=== PATIENT | male | born 1950 | race Hispanic/Latino ===

== ENCOUNTER 2017-02-19 17:04 | Inpatient (IN) | payer MEDICARE ==
[2017-02-19 18:54] LABS: Hematocrit 37.1 % (35.5-45.6); Mean Corpuscular HGB Conc 32 % (32-34); Mean Corpuscular Hemoglobin 29 pg (28-32); Mean Corpuscular Volume 90 fl (84-94); Platelet Count 277 K/mm3 (140-440); Red Blood Count 4.11 M/mm3 (3.65-5.03); Red Cell Distribution Width 18.5 % (13.2-15.2)
[2017-02-19 19:04] LABS: Albumin 2.5 g/dL (3.9-5); Albumin/Globulin Ratio 0.7 %; BUN/Creatinine Ratio 31.42; Bilirubin,Total 1.1 mg/dL (0.1-1.2); Calcium 8.6 mg/dL (8.4-10.2); Chloride 90.3 mmol/L (98-107); Potassium 3.7 mmol/L (3.6-5.0)
[2017-02-19] MEDS ORDERED: NORCO 5/325 PO ONE (19:04)
[2017-02-19 19:45] LABS: Basophils % (Manual) 0 % (0.0-1.8); Blastocytes % (Manual) 0 %; Eosinophils % (Manual) 0 % (0.0-4.3)
[2017-02-19 19:47] LABS: Anisocytosis 1+; Diff Status Complete; Large Platelets 1+; Platelet Estimate Consistent w Auto; Poikilocytosis 1+
[2017-02-19] MEDS ORDERED: VANCOMYCIN/NS 1 GM/250 ML 1 GM/250 ML BAG IV ONE (19:55)
[2017-02-19] MEDS ORDERED: ZOSYN/NS 4.5GM/100ML 4.5 GM/100 ML VIAL IV ONE (19:55)
--- NOTE | 2017-02-19 21:03 | Emergency Department Report ---
ED General Adult HPI - General Chief complaint: Wound/Laceration Stated complaint: BACK PAIN Time Seen by Provider: 02/19/17 19:29 Source: patient, EMS Mode of arrival: Stretcher Limitations: Physical Limitation - History of Present Illness Initial comments: 66 y/o M presents w/ cc of weakness. Pt 1 week ago ntoed to be gradually weak, pt is a poor historian. Pt fell on his way to the car 3-4 days ago, and had to be carried home by neighbors. Pt does complain of subjective fever, chills, and productive cough. Pt does have chronic back pain, and stated since the fall 3 days ago, had been too weak to walk. Pt denies vomiting, diarrhea. Severity scale (0 -10): 10 - Related Data Previous Rx's Medication Instructions Recorded Last Taken Type Multivitamin [Multi-Vitamin Daily] 1 each PO DAILY #30 tablet 06/04/14 Unknown Rx Omeprazole Magnesium [PriLOSEC Otc] 20 mg PO QDAY #30 tablet.dr 06/04/14 Unknown Rx ALBUTEROL Inhaler [ProAir HFA 2 puff IH QID PRN #1 inhalation 12/29/15 Unknown Rx Inhaler] Metoprolol [Lopressor TAB] 100 mg PO BID #30 tablet 12/29/15 Unknown Rx Pantoprazole [Protonix INJ] 40 mg PO BID #60 tab 12/29/15 Unknown Rx Trazodone HCl [Oleptro ER] 150 mg PO QHS #30 tab.er.24h 12/29/15 Unknown Rx Folic Acid [Folvite] 1 mg PO QDAY #30 tablet 07/08/16 Unknown Rx Lisinopril [Zestril TAB] 40 mg PO QDAY #30 tablet 07/08/16 Unknown Rx Thiamine [Vitamin B-1] 100 mg PO QDAY #30 tablet 07/08/16 Unknown Rx hydrALAZINE [Apresoline TAB] 50 mg PO Q8HR #90 tablet 07/08/16 Unknown Rx Allergies Allergy/AdvReac Type Severity Reaction Status Date / Time Tetanus Vaccines & Toxoid Allergy Unknown Verified 05/14/14 15:43 ED Review of Systems ROS: Stated complaint: BACK PAIN Other details as noted in HPI Comment: All other systems reviewed and negative Constitutional: denies: chills, fever Eyes: denies: eye pain, eye discharge, vision change ENT: denies: ear pain, throat pain Respiratory: denies: cough, shortness of breath, wheezing Cardiovascular: denies: chest pain, palpitations Endocrine: no symptoms reported Gastrointestinal: denies: abdominal pain, nausea, diarrhea Genitourinary: denies: urgency, dysuria Musculoskeletal: denies: back pain, joint swelling, arthralgia Skin: denies: rash, lesions Neurological: denies: headache, weakness, paresthesias Psychiatric: denies: anxiety, depression Hematological/Lymphatic: denies: easy bleeding, easy bruising ED Past Medical Hx - Past Medical History Previous Medical History?: Yes Hx Hypertension: Yes Hx Seizures: Yes Hx Psychiatric Treatment: Yes (PTSD) Hx COPD: Yes Additional medical history: ETOH abuse - Surgical History Past Surgical History?: Yes Additional Surgical History: hernia repair x2 - Family History Family history: no significant - Social History Smoking Status: Current Every Day Smoker Substance Use Type: Alcohol - Medications Home Medications: Home Medications Medication Instructions Recorded Confirmed Last Taken Type Multivitamin [Multi-Vitamin Daily] 1 each PO DAILY #30 tablet 06/04/14 12/28/15 Unknown Rx Omeprazole Magnesium [PriLOSEC Otc] 20 mg PO QDAY #30 tablet. 06/04/14 Unknown Rx ALBUTEROL Inhaler [ProAir HFA 2 puff IH QID PRN #1 inhalation 12/29/15 Unknown Rx Inhaler] Metoprolol [Lopressor TAB] 100 mg PO BID #30 tablet 12/29/15 Unknown Rx Pantoprazole [Protonix INJ] 40 mg PO BID #60 tab 12/29/15 Unknown Rx Trazodone HCl [Oleptro ER] 150 mg PO QHS #30 tab.er.24h 12/29/15 Unknown Rx Folic Acid [Folvite] 1 mg PO QDAY #30 tablet 07/08/16 Unknown Rx Lisinopril [Zestril TAB] 40 mg PO QDAY #30 tablet 07/08/16 Unknown Rx Thiamine [Vitamin B-1] 100 mg PO QDAY #30 tablet 07/08/16 Unknown Rx hydrALAZINE [Apresoline TAB] 50 mg PO Q8HR #90 tablet 07/08/16 Unknown Rx ED Physical Exam - General Limitations: Physical Limitation General appearance: alert, in no apparent distress - Head Head exam: Present: atraumatic, normocephalic - Eye Eye exam: Present: normal appearance, PERRL, EOMI - ENT ENT exam: Present: normal exam, normal orophraynx, mucous membranes moist - Neck Neck exam: Present: normal inspection, full ROM - Respiratory Respiratory exam: Present: normal lung sounds bilaterally. Absent: respiratory distress - Cardiovascular Cardiovascular Exam: Present: regular rate, normal rhythm. Absent: systolic murmur, diastolic murmur, rubs, gallop - GI/Abdominal GI/Abdominal exam: Present: soft, normal bowel sounds. Absent: distended, tenderness, guarding, rebound - Rectal Rectal exam: Present: deferred - Extremities Exam Extremities exam: Present: normal inspection, full ROM, other (no tenderness, moving all four extremities) - Back Exam Back exam: Present: normal inspection, other (No stepoff/deformity, or point tenderness, pt has a large sacral 3x2 cm stage 2 decubitus ulcer) - Neurological Exam Neurological exam: Present: alert, oriented X3 - Psychiatric Psychiatric exam: Present: normal affect, normal mood - Skin Skin exam: Present: warm, dry, intact, normal color, other (diffuse excorations throughout). Absent: rash ED Course Vital Signs 02/19/17 02/19/17 02/19/17 17:58 19:18 23:53 Temperature 97.9 F Pulse Rate 122 H Respiratory 20 20 20 Rate Blood Pressure 174/104 O2 Sat by Pulse 100 100 Oximetry ED Medical Decision Making - Lab Data Result diagrams: 02/19/17 18:24 02/19/17 18:24 - Medical Decision Making Labs taken at triage notes leukocytosis, hyponatremia, likely hypovolemic hyponatremia given pt has been unable to eat/drink due to weakness. Pt possibly septic, sources include decubitus ulcer. Will start empiric abx, ck level to r/o rhabdo, and fluid resuscitation Dr. Colon states she will admit but requests CT lumbar to r/o traumatic fractures, CT does note comrpession fracture Critical care attestation.: If time is entered above; I have spent that time in minutes in the direct care of this critically ill patient, excluding procedure time. ED Disposition Clinical Impression: Dehydration, Compression fracture Sepsis Qualifiers: Sepsis type: sepsis due to unspecified organism Qualified Code(s): A41.9 - Sepsis, unspecified organism T12 compression fracture Qualifiers: Encounter type: initial encounter Disposition: OP ADMITTED IP TO THIS HOSP Is pt being admited?: Yes Condition: Stable Referrals: PRIMARY CARE, [Primary Care Provider] - 3-5 Days Time of Disposition: 00:45
[2017-02-19 22:54] LABS: Bilirubin,Urine NEG (Negative); Blood,Urine SM (Negative); Ketones,Urine NEG (Negative); Leukocyte Esterase,Urine NEG (Negative); Nitrite,Urine NEG (Negative)
--- NOTE | 2017-02-20 00:21 | Cat Scan Report ---
FINAL REPORT EXAM: CT LUMBAR SPINE WO CON HISTORY: fall LOW BACK PAIN COMPARISON: None available. TECHNIQUE: Contiguous axial images were obtained. Additional sagittal and coronal reformatted images were obtained. FINDINGS: Lumbar vertebral body heights are preserved. Mild loss of disc height endplate osteophyte throughout the lumbar spine. Mild to moderate superior plate compression deformity T12 level. No bony retropulsion. There is depression of the central anterior endplate by 7 millimeters. Mild broad-based disc bulge and mild to moderate facet joint changes at several levels throughout the lumbar spine causing mild to moderate canal stenosis and foraminal narrowing at several levels. Severe calcified plaque along the aorta. Abdominal aorta remains normal in caliber. IMPRESSION: Mild to moderate superior plate compression deformity T12 level. No associated bony retropulsion. Lumbar vertebral body heights are preserved. Mild to moderate degenerative changes of the lumbar spine.
[2017-02-20] MEDS ORDERED: DUONEB 0.5 MG-3 MG/3 ML SOLN IH ONE (01:12)
[2017-02-20] MEDS ORDERED: MORPHINE IV ONE (01:12)
[2017-02-20] MEDS ORDERED: TYLENOL PO PRN (01:44)
[2017-02-20] MEDS ORDERED: ZOFRAN IV PRN (01:44)
[2017-02-20] MEDS ORDERED: DULCOLAX PR PRN (01:44)
[2017-02-20] MEDS ORDERED: MILK OF MAGNESIA PO PRN (01:44)
--- NOTE | 2017-02-20 01:46 | History and Physical Report ---
History of Present Illness Date of examination: 02/20/17 History of present illness: 66-year-old man with history of hypertension, PTSD, seizure was brought to the emergency room for evaluation. Patient stated that he had difficulty ambulating since he had a fall 4 days ago. He was found by neighbors covered in feces and urine. He has a cough off white phlegm, subjective fever Patient denies chest pain, palpitation, shortness of breath, , abdominal pain, hematochezia, dysuria, frequency, focal weakness, dysarthria, fever chills, polydipsia polyuria, hot or cold intolerance, easy bruisability, or rash or bleeding from mucosal membrane, rhinorrhea, epistaxis, earache, tinnitus, blurry vision, eye discharge, anxiety, depression. Other review of systems negative PAST SURGICAL HISTORY: Hernia repair 2 SOCIAL HISTORY: Admits to alcohol, tobacco, no drugs FAMILY HISTORY:Hypertension Medications and Allergies Allergies Allergy/AdvReac Type Severity Reaction Status Date / Time Tetanus Vaccines & Toxoid Allergy Unknown Verified 05/14/14 15:43 Home Medications Medication Instructions Recorded Confirmed Last Taken Type Multivitamin [Multi-Vitamin Daily] 1 each PO DAILY #30 tablet 06/04/14 12/28/15 Unknown Rx Omeprazole Magnesium [PriLOSEC Otc] 20 mg PO QDAY #30 tablet.dr 06/04/14 Unknown Rx ALBUTEROL Inhaler [ProAir HFA 2 puff IH QID PRN #1 inhalation 12/29/15 Unknown Rx Inhaler] Metoprolol [Lopressor TAB] 100 mg PO BID #30 tablet 12/29/15 Unknown Rx Pantoprazole [Protonix INJ] 40 mg PO BID #60 tab 12/29/15 Unknown Rx Trazodone HCl [Oleptro ER] 150 mg PO QHS #30 tab.er.24h 12/29/15 Unknown Rx Folic Acid [Folvite] 1 mg PO QDAY #30 tablet 07/08/16 Unknown Rx Lisinopril [Zestril TAB] 40 mg PO QDAY #30 tablet 07/08/16 Unknown Rx Thiamine [Vitamin B-1] 100 mg PO QDAY #30 tablet 07/08/16 Unknown Rx hydrALAZINE [Apresoline TAB] 50 mg PO Q8HR #90 tablet 07/08/16 Unknown Rx Exam - Physical Exam Narrative exam: Gen. appearance: Patient lying in bed, no apparent distress HEENT: Normocephalic, atraumatic, pupils equally round and reactive to light, extraocular movement intact, and no sclericterus,. No JVD or thyromegaly or nodule,neck supple, no carotid bruit ,mucous membranes moist, no exudate or erythema Heart: S1, S2, regular rate and rhythm Lungs: Clear to auscultation bilaterally, breathing comfortable Abdomen: Positive bowel sounds, nontender, nondistended, no organomegaly Extremity: No edema, cyanosis, clubbing Skin: bruises over knees, upper extremities, No rash, nodules, warm, dry Neuro: Oriented 3, cranial nerves II-12 intact, speech is fluent, motor and sensory intact - Constitutional Vitals: Temp Pulse Resp BP Pulse Ox 97.9 F 107 H 20 141/88 97 02/19/17 17:58 02/20/17 01:31 02/20/17 01:31 02/20/17 01:00 02/20/17 01:00 Results - Labs CBC & Chem 7: 02/21/17 08:32 02/21/17 08:32 Labs: Abnormal lab results 02/19/17 02/19/17 02/19/17 Range/Units 18:24 18:24 18:24 WBC 29.0 H (4.5-11.0) K/mm3 RDW 18.5 H (13.2-15.2) % Seg Neuts % (Manual) 96.0 H (40.0-70.0) % Lymphocytes % (Manual) 1.0 L (13.4-35.0) % Seg Neutrophils # Man 27.8 H (1.8-7.7) K/mm3 Lymphocytes # (Manual) 0.3 L (1.2-5.4) K/mm3 Monocytes # (Manual) 0.9 H (0.0-0.8) K/mm3 Sodium 128 L (137-145) mmol/L Chloride 90.3 L (98-107) mmol/L Carbon Dioxide 20 L (22-30) mmol/L BUN 44 H (9-20) mg/dL Alkaline Phosphatase 146 H (35-129) units/L Total Creatine Kinase 498 H (55-170) units/L Total Protein 6.0 L (6.3-8.2) g/dL Albumin 2.5 L (3.9-5) g/dL - Imaging and Cardiology EKG: image reviewed Chest x-ray: image reviewed Assessment and Plan CAT scan of the LS spine reviewed Follow official report of the x-ray of the spine SIRS Compression fracture Alcohol abuse Hyponatremia Hypertension decubitus ulcer PTSD Admits medicine Start IV fluid, empiric antibiotics, follow cultures Consult interventional radiology Start CIWA protocol with IV Ativan Continue appropriate outpatient medication, start DVT prophylaxis consult wound care
[2017-02-20] MEDS ORDERED: NACL 0.9% 1000 ML 1,000 ML IV SCH (02:00)
[2017-02-20] MEDS ORDERED: ATIVAN IV PRN (05:48)
[2017-02-20] MEDS: ZOSYN/NS 4.5GM/100ML 4.5 GM/100 ML VIAL IV SCH ×3 (07:20→23:00)
[2017-02-20] MEDS: PERCOCET 5/325 PO PRN ×3 (07:36→20:14)
--- NOTE | 2017-02-20 07:45 | Admit Criteria Form ---
Admission Criteria Documentation: HYPONATREMIA; HYPERNATREMIA; HYPOKALEMIA; HYPERKALEMIA; HYPOCALCEMIA; HYPERCALCEMIA Clinical Indications for Inpatient Care (Place 'X' for any and all applicable criteria): Ongoing inpatient care may be indicated for ANY ONE of the following [G](1)(2)(3 )(5): [X ]I. Hyponatremia with ANY ONE of the following: [X ]a) Sodium less than 130 mEq/L (mmol/L) (new) (6)(22) [ ]b) Sodium less than 135 mEq/L (mmol/L) with ANY ONE of the following: [ ]i) Severe medical etiology requiring inpatient management (eg, heart failure, hypovolemia) [ ]ii) Altered mental status [ ]iii) Seizures [ ]II. Hypernatremia with ANY ONE of the following: [ ]a) Sodium greater than 155 mEq/L (mmol/L) [ ]b) Sodium greater than 150 mEq/L (mmol/L) with ANY ONE of the following: [ ] i) Altered mental status [ ]ii) Seizures [ ]iii) Severe medical etiology (eg, hypovolemia, diabetes insipidus) [ ]iv) Severe weakness [ ]v) Severe medical etiology (eg, hemolysis, infection, drug overdose) [ ]III. Hypokalemia with ANY ONE of the following: [ ]a) Potassium less than 2.5 mEq/L (mmol/L) despite outpatient and emergency treatment [ ]b) Potassium less than 3.0 mEq/L (mmol/L) with ANY ONE of the following: [ ]i) Weakness [ ]ii) Cardiac abnormality (eg, arrhythmia, conduction disturbance) [ ]iii) Cardiac ischemia [ ]iv) Ileus [ ]v) Ongoing medical cause requiring inpatient management. ( e.g., acute renal wasting, SIADH) [ ]vi) Other severe symptoms [ ] IV. Hyperkalemia with ANY ONE of the following: [ ]a) Potassium greater than 6.5 mEq/L (mmol/L) [ ]b) Potassium greater than 5 mEq/L (mmol/L) with ANY ONE of the following: [ ]i) Severe ECG findings [H] [ ]ii) Acute worsening of renal failure (creatinine greater than 2.5 mg/dL (221 micromoles/L) or significant elevation for age and size) [ ] V. Hypocalcemia with ANY ONE of the following: [ ]a) Calcium less than 7 mg/dL (1.75 mmol/L) despite outpatient and emergency treatment(19) [ ]b) Calcium less than 8 mg/dL (2 mmol/L) with significant symptoms or findings; examples include: [ ]i) Cardiac abnormality (eg, arrhythmia or conduction disturbance) [ ]ii) Altered mental status [ ]iii) Seizures [ ]iv) Breathing difficulty [ ]v) Muscle spasms [ ]. Hypercalcemia with ANY ONE of the following: [ ]a) Calcium greater than 14 mg/dL (3.5 mmol/L) [ ]b) Calcium greater than 12 mg/dL (3 mmol/L) with ANY ONE of the following: [ ]i) Significant dehydration or hypovolemia as indicated by ANY ONE of the following(2): [ ]1. Clinically significant dehydration as indicated by ANY ONE of the following: [ ]A. Acute loss of weight from baseline (5% of body weight in adults, 9% in pediatric patients) [ ]B. Hemodynamic instability [ ]C. Acute renal failure [ ]D. Serum sodium greater than 150 mEq/L (mmol/L) [ ]2) Dehydration that is persistent indicated by ALL of the following: [ ]A. Oral rehydration therapy not tolerated or insufficient to adequately correct dehydration [ ]B. Appropriate intravenous treatment (eg, fluids ) does not readily correct dehydration ie, after 12 to 24 hours of treatment) [ ]ii) Significant symptoms or findings; examples include: [ ]1) Altered mental status [ ]2) Cardiac abnormality (eg, arrhythmia, conduction disturbance) [ ]3) Cardiac abnormality (eg, arrhythmia, conduction disturbance) The original [facility] content created by [email or web address] has been revised. The portions of the content which have been revised are identified through the use of italic text or in bold, and [facility] has neither reviewed nor approved the modified material. All other unmodified content is copyright [facility] [employer] Please see references footnoted in the original [facility] [employer] edition 2016 Admission Criteria Met: Yes
--- NOTE | 2017-02-20 08:23 | XRay Report ---
PORTABLE CHEST INDICATION: Possible sepsis. COMPARISON: 07/06/2016 FINDINGS: Portable, frontal chest radiographs, 2 images, again demonstrate normal cardiomediastinal silhouette, atherosclerotic aortic and carotid calcifications, clear hyperexpanded lungs, EKG leads and osteopenic bones. CONCLUSION: No acute chest process with hyperinflation again noted, as described. Please correlate. Thank you for the opportunity to participate in this patient's care.
[2017-02-20] MEDS ORDERED: NON-FORMULARY (Multivitamin [Multi-Vitamin Daily] 1 EACH) PO SCH (10:00)
[2017-02-20] MEDS ORDERED: NON-FORMULARY (Omeprazole Magnesium [Prilosec Otc] 20 MG) PO SCH (10:00)
[2017-02-20] MEDS ORDERED: LOVENOX SUB-Q SCH (10:00)
[2017-02-20] MEDS: VITAMIN B-1 PO SCH (10:06)
[2017-02-20] MEDS: THERAGRAN Tab PO SCH (10:06)
[2017-02-20] MEDS: PROTONIX PO SCH (10:06)
[2017-02-20] MEDS: LOPRESSOR PO SCH (10:07)
[2017-02-20] MEDS: LOVENOX SUB-Q SCH (10:08)
[2017-02-20] MEDS: PROVENTIL IH PRN (13:32)
--- NOTE | 2017-02-20 14:05 | Consultation ---
History of Present Illness - Reason for Consult Consult date: 02/20/17 T12 fracture - History of Present Illness 66-year-old man with history of hypertension, PTSD, and history of seizure was brought to the emergency room for evaluation for inability to ambulate for 4 days. 4 days ago, the patient fell backwards and hit his back. He subsequently has had difficulty ambulating and has not been able to walk. He has been crawling throughout the house with large excoriations on his lower and upper extremities. The patient can move his toes and move his feet. The patient reports that he is having some difficulty breathing. Upon physical exam of his spine, the patient has no severe tenderness along his spine, but does have some mild tenderness at the thoracolumbar area. Past History Past Medical History: seizures, other (PTSD) Past Surgical History: hernia repair Social history: other ([place] vet) Family history: other (noncontributory) Medications and Allergies Allergies Allergy/AdvReac Type Severity Reaction Status Date / Time Tetanus Vaccines & Toxoid Allergy Unknown Verified 05/14/14 15:43 Home Medications Medication Instructions Recorded Confirmed Last Taken Type Multivitamin [Multi-Vitamin Daily] 1 each PO DAILY #30 tablet 06/04/14 12/28/15 Unknown Rx Omeprazole Magnesium [PriLOSEC Otc] 20 mg PO QDAY #30 tablet. 06/04/14 Unknown Rx ALBUTEROL Inhaler [ProAir HFA 2 puff IH QID PRN #1 inhalation 12/29/15 Unknown Rx Inhaler] Metoprolol [Lopressor TAB] 100 mg PO BID #30 tablet 12/29/15 Unknown Rx Pantoprazole [Protonix INJ] 40 mg PO BID #60 tab 12/29/15 Unknown Rx Trazodone HCl [Oleptro ER] 150 mg PO QHS #30 tab.er.24h 12/29/15 Unknown Rx Folic Acid [Folvite] 1 mg PO QDAY #30 tablet 07/08/16 Unknown Rx Lisinopril [Zestril TAB] 40 mg PO QDAY #30 tablet 07/08/16 Unknown Rx Thiamine [Vitamin B-1] 100 mg PO QDAY #30 tablet 07/08/16 Unknown Rx hydrALAZINE [Apresoline TAB] 50 mg PO Q8HR #90 tablet 07/08/16 Unknown Rx Active Meds: Active Medications Acetaminophen (Tylenol) 650 mg PO Q4H PRN PRN Reason: Pain MILD(1-3)/Fever >100.5/BUSTOS Albuterol (Proventil) 2.5 mg IH Q4HRT PRN PRN Reason: Shortness Of Breath Last Admin: 02/20/17 13:32 Dose: 2.5 mg Bisacodyl (Dulcolax) 10 mg SD QDAY PRN PRN Reason: Constipation unrelieved by MOM Enoxaparin Sodium (Lovenox) 40 mg SUB-Q QDAY@1000 [facility] Last Admin: 02/20/17 10:08 Dose: 40 mg Sodium Chloride (Nacl 0.9% 1000 Ml) 1,000 mls @ 100 mls/hr IV DIRECT MINDY Last Admin: 02/20/17 07:36 Dose: 100 mls/hr Piperacillin Sod/Tazobactam Sod (Zosyn/Ns 4.5gm/100ml) 4.5 gm in 100 mls @ 200 mls/hr IV Q8HR MINDY PRN Reason: Protocol Last Admin: 02/20/17 07:20 Dose: 200 mls/hr Sodium Chloride (Nacl 0.9% 1000 Ml) 1,000 mls @ 125 mls/hr IV DIRECT MINDY Lorazepam (Ativan) 2 mg IV Q1HR PRN PRN Reason: CIWA-Ar 8-15 Lorazepam (Ativan) 4 mg IV Q1HR PRN PRN Reason: CIWA-Ar 16-25 Magnesium Hydroxide (Milk Of Magnesia) 30 ml PO Q4H PRN PRN Reason: Constipation Metoprolol Tartrate (Lopressor) 100 mg PO BID [facility] Last Admin: 02/20/17 10:07 Dose: 100 mg Multivitamins (Theragran Tab) 1 each PO DAILY [facility] Last Admin: 02/20/17 10:06 Dose: 1 each Ondansetron HCl (Zofran) 4 mg IV Q8H PRN PRN Reason: N/V unrelieved by Reglan Oxycodone/Acetaminophen (Percocet 5/325) 1 tab PO Q6H PRN PRN Reason: Pain, Moderate (4-6) Last Admin: 02/20/17 07:36 Dose: 1 tab Pantoprazole Sodium (Protonix) 20 mg PO QDAY [facility] Last Admin: 02/20/17 10:06 Dose: 20 mg Thiamine HCl (Vitamin B-1) 100 mg PO QDAY [facility] Last Admin: 02/20/17 10:06 Dose: 100 mg Trazodone HCl (Desyrel) 150 mg PO QHS [facility] Review of Systems All systems: negative (see HPI) Exam - Constitutional Vitals: Temp Pulse Resp BP Pulse Ox 97.8 F 69 20 102/69 98 02/20/17 08:30 02/20/17 13:42 02/20/17 13:42 02/20/17 08:30 02/20/17 10:55 General appearance: Present: no acute distress - EENT Eyes: Present: EOM intact ENT: hearing intact - Respiratory Respiratory effort: normal - Extremities Extremities: normal temperature, normal color Extremity abnormal: other (excoriations along the upper and lower extremities) - Musculoskeletal Musculoskeletal: other (although the patient appears to have inability to move his upper and lower extremities, he reports that he cannot stand ; mild tenderness along the thoracolumbar spinal region, but no severe pain) - Neurologic Neurologic: moves all extremities, no gait normal Results - Labs CBC & Chem 7: 02/19/17 18:24 02/19/17 18:24 Assessment and Plan 66-year-old male who presents after trauma to his back with CT evidence of a T12 age-indeterminate compression fracture with inability to ambulate, but only mild to moderate pain at the thoracolumbar spinal region with excoriations along his upper and lower extremities and his face. Recommend MRI of the spine to evaluate the age of the compression deformity as well as to look for other etiology for inability to ambulate. The patient only has mild to moderate pain at the thoracolumbar spine and yet reports he cannot walk since his trauma. His disability seems out of proportion to the spinal fracture and MRI may reveal another cause such as disc extrusion.
--- NOTE | 2017-02-20 14:33 | Progress Note ---
Assessment and Plan Assessment and plan: --Metabolic encephalopathy Multifactorial secondary to alcohol use possible early dementia And malnutrition Closely monitor --Compression fracture T12 Check MRI of the spine Consults and recommendations noted and appreciated --Chronic Alcohol abuse Closely monitor for any withdrawal symptoms Continue [facility] protocol --Multiple decubitus ulcers/abrations and bruises Wound care, surgical consultation for possible debridement, empiric antibiotics Follow cultures --Hyponatremia; replacement therapy with normal saline closely monitor electrolytes, --Hypertension; Moderate control, closely monitor blood pressures add when necessary hydralazine --DVT prophylaxis with Lovenox Full CODE STATUS Consults and recommendations noted and appreciated Patient's condition treatment plan discussed in detail with the patient his nurse as well as the case management History Interval history: Seen and evaluated medical records reviewed Patient 's nurse at the bedside, patient is lethargic and confused Responding to simple questions appropriately at times Vital signs reviewed stable Hospitalist Physical - Constitutional Vitals: Temp Pulse Resp BP Pulse Ox 97.8 F 69 20 102/69 98 02/20/17 08:30 02/20/17 13:42 02/20/17 13:42 02/20/17 08:30 02/20/17 10:55 General appearance: Present: no acute distress, cachectic, disheveled - EENT Eyes: Present: PERRL, EOM intact - Neck Neck: Present: supple, normal ROM - Respiratory Respiratory effort: normal Respiratory: bilateral: diminished, negative: rales, rhonchi, wheezing - Cardiovascular Rhythm: regular Heart Sounds: Present: S1 & S2 - Extremities Extremities: no ischemia, pulses intact, pulses symmetrical, abnormal (multiple abrasions all over the body, different stages of healing) - Abdominal General gastrointestinal: soft, non-tender, non-distended, normal bowel sounds - Integumentary Integumentary: Present: warm, erythema (multiple decubitus ulcers of different stages, multiple ablations of different stages of healing) - Psychiatric Psychiatric: appropriate mood/affect, other (confused at times) - Neurologic Neurologic: moves all extremities Results - Labs CBC & Chem 7: 02/19/17 18:24 02/19/17 18:24 Labs: Laboratory Last Values WBC 29.0 K/mm3 (4.5-11.0) H 02/19/17 18:24 RBC 4.11 M/mm3 (3.65-5.03) 02/19/17 18:24 Hgb 12.0 gm/dl (11.8-15.2) 02/19/17 18:24 Hct 37.1 % (35.5-45.6) 02/19/17 18:24 MCV 90 fl (84-94) 02/19/17 18:24 MCH 29 pg (28-32) 02/19/17 18:24 MCHC 32 % (32-34) 02/19/17 18:24 RDW 18.5 % (13.2-15.2) H 02/19/17 18:24 Plt Count 277 K/mm3 (140-440) 02/19/17 18:24 Add Manual Diff Complete 02/19/17 18:24 Total Counted 200 02/19/17 18:24 Seg Neutrophils % Communications Equipment Installer 02/19/17 18:24 Seg Neuts % (Manual) 96.0 % (40.0-70.0) H 02/19/17 18:24 Band Neutrophils % 0 % 02/19/17 18:24 Lymphocytes % (Manual) 1.0 % (13.4-35.0) L 02/19/17 18:24 Reactive Lymphs % (Man) 0 % 02/19/17 18:24 Monocytes % (Manual) 3.0 % (0.0-7.3) 02/19/17 18:24 Eosinophils % (Manual) 0 % (0.0-4.3) 02/19/17 18:24 Basophils % (Manual) 0 % (0.0-1.8) 02/19/17 18:24 Metamyelocytes % 0 % 02/19/17 18:24 Myelocytes % 0 % 02/19/17 18:24 Promyelocytes % 0 % 02/19/17 18:24 Blast Cells % 0 % 02/19/17 18:24 Nucleated RBC % Not Reportable 02/19/17 18:24 Seg Neutrophils # Man 27.8 K/mm3 (1.8-7.7) H 02/19/17 18:24 Band Neutrophils # 0.0 K/mm3 02/19/17 18:24 Lymphocytes # (Manual) 0.3 K/mm3 (1.2-5.4) L 02/19/17 18:24 Abs React Lymphs (Man) 0.0 K/mm3 02/19/17 18:24 Monocytes # (Manual) 0.9 K/mm3 (0.0-0.8) H 02/19/17 18:24 Eosinophils # (Manual) 0.0 K/mm3 (0.0-0.4) 02/19/17 18:24 Basophils # (Manual) 0.0 K/mm3 (0.0-0.1) 02/19/17 18:24 Metamyelocytes # 0.0 K/mm3 02/19/17 18:24 Myelocytes # 0.0 K/mm3 02/19/17 18:24 Promyelocytes # 0.0 K/mm3 02/19/17 18:24 Blast Cells # 0.0 K/mm3 02/19/17 18:24 WBC Morphology Not Reportable 02/19/17 18:24 Hypersegmented Neuts Not Reportable 02/19/17 18:24 Hyposegmented Neuts Not Reportable 02/19/17 18:24 Hypogranular Neuts Not Reportable 02/19/17 18:24 Smudge Cells Not Reportable 02/19/17 18:24 Toxic Granulation Not Reportable 02/19/17 18:24 Toxic Vacuolation Not Reportable 02/19/17 18:24 Dohle Bodies Not Reportable 02/19/17 18:24 Pelger-Huet Anomaly Not Reportable 02/19/17 18:24 Carol Rods Not Reportable 02/19/17 18:24 Platelet Estimate Consistent w auto 02/19/17 18:24 Clumped Platelets Not Reportable 02/19/17 18:24 Plt Clumps, EDTA Not Reportable 02/19/17 18:24 Large Platelets 1+ 02/19/17 18:24 Giant Platelets Not Reportable 02/19/17 18:24 Platelet Satelliting Not Reportable 02/19/17 18:24 Plt Morphology Comment Not Reportable 02/19/17 18:24 RBC Morphology Not Reportable 02/19/17 18:24 Dimorphic RBCs Not Reportable 02/19/17 18:24 Polychromasia Not Reportable 02/19/17 18:24 Hypochromasia Not Reportable 02/19/17 18:24 Poikilocytosis 1+ 02/19/17 18:24 Anisocytosis 1+ 02/19/17 18:24 Microcytosis Not Reportable 02/19/17 18:24 Macrocytosis Not Reportable 02/19/17 18:24 Spherocytes Not Reportable 02/19/17 18:24 Pappenheimer Bodies Not Reportable 02/19/17 18:24 Sickle Cells Not Reportable 02/19/17 18:24 Target Cells Not Reportable 02/19/17 18:24 Tear Drop Cells Not Reportable 02/19/17 18:24 Ovalocytes Not Reportable 02/19/17 18:24 Helmet Cells Not Reportable 02/19/17 18:24 [place] Bodies Not Reportable 02/19/17 18:24 [place] Rings Not Reportable 02/19/17 18:24 Rtuh Cells Not Reportable 02/19/17 18:24 Bite Cells Not Reportable 02/19/17 18:24 Crenated Cell Not Reportable 02/19/17 18:24 Elliptocytes Not Reportable 02/19/17 18:24 Acanthocytes (Spur) Not Reportable 02/19/17 18:24 Rouleaux Not Reportable 02/19/17 18:24 Hemoglobin C Crystals Not Reportable 02/19/17 18:24 Schistocytes Not Reportable 02/19/17 18:24 Malaria parasites Not Reportable 02/19/17 18:24 Star Bodies Not Reportable 02/19/17 18:24 Hem Pathologist Commnt No 02/19/17 18:24 Sodium 128 mmol/L (137-145) L 02/19/17 18:24 Potassium 3.7 mmol/L (3.6-5.0) 02/19/17 18:24 Chloride 90.3 mmol/L (98-107) L 02/19/17 18:24 Carbon Dioxide 20 mmol/L (22-30) L 02/19/17 18:24 Anion Gap 21 mmol/L 02/19/17 18:24 BUN 44 mg/dL (9-20) H 02/19/17 18:24 Creatinine 1.4 mg/dL (0.8-1.5) 02/19/17 18:24 Estimated GFR 51 ml/min 02/19/17 18:24 BUN/Creatinine Ratio 31.42 % 02/19/17 18:24 Glucose 82 mg/dL (75-100) 02/19/17 18:24 Lactic Acid 1.50 mmol/L (0.7-2.0) 02/19/17 Unknown Calcium 8.6 mg/dL (8.4-10.2) 02/19/17 18:24 Total Bilirubin 1.10 mg/dL (0.1-1.2) 02/19/17 18:24 AST 29 units/L (5-40) 02/19/17 18:24 ALT 12 units/L (7-56) 02/19/17 18:24 Alkaline Phosphatase 146 units/L (35-129) H 02/19/17 18:24 Total Creatine Kinase 498 units/L (55-170) H 02/19/17 18:24 Total Protein 6.0 g/dL (6.3-8.2) L 02/19/17 18:24 Albumin 2.5 g/dL (3.9-5) L 02/19/17 18:24 Albumin/Globulin Ratio 0.7 % 02/19/17 18:24 Urine Color Carmen (Yellow) 02/19/17 22:15 Urine Turbidity Clear (Clear) 02/19/17 22:15 Urine pH 5.0 (5.0-7.0) 02/19/17 22:15 Ur Specific [place] 1.015 (1.003-1.030) 02/19/17 22:15 Urine Protein 30 mg/dl mg/dL (Negative) 02/19/17 22:15 Urine Glucose (UA) Neg mg/dL (Negative) 02/19/17 22:15 Urine Ketones Neg mg/dL (Negative) 02/19/17 22:15 Urine Blood Sm (Negative) 02/19/17 22:15 Urine Nitrite Neg (Negative) 02/19/17 22:15 Urine Bilirubin Neg (Negative) 02/19/17 22:15 Urine Urobilinogen 4.0 mg/dL (<2.0) 02/19/17 22:15 Ur Leukocyte Esterase Neg (Negative) 02/19/17 22:15 Urine WBC (Auto) 3.0 /HPF (0.0-6.0) 02/19/17 22:15 Urine RBC (Auto) 1.0 /HPF (0.0-6.0) 02/19/17 22:15 Amorphous Crystals Few 02/19/17 22:15
[2017-02-20] MEDS: ATIVAN IV PRN (20:10)
[2017-02-20] MEDS: NACL 0.9% 1000 ML 1,000 ML IV SCH (20:10)
[2017-02-20] MEDS ORDERED: NON-FORMULARY (Trazodone Hcl [Oleptro Er] 150 MG) PO SCH (22:00)
[2017-02-20] MEDS: DESYREL PO SCH (23:00)
[2017-02-20] MEDS: DAKIN'S HALF STRENGTH TP SCH (23:00)
[2017-02-20] MEDS: THERMAZENE 50 GRAM TP SCH (23:00)
[2017-02-21] MEDS: LOPRESSOR PO SCH ×3 (00:04→23:46)
[2017-02-21] MEDS: ATIVAN IV PRN ×4 (04:47→23:59)
[2017-02-21] MEDS: NACL 0.9% 1000 ML 1,000 ML IV SCH (04:48)
[2017-02-21] MEDS: ZOSYN/NS 4.5GM/100ML 4.5 GM/100 ML VIAL IV SCH ×2 (06:10→12:30)
[2017-02-21 08:52] LABS: Hematocrit 33.2 % (35.5-45.6); Hemoglobin 10.8 gm/dl (11.8-15.2); Mean Corpuscular HGB Conc 33 % (32-34); Mean Corpuscular Hemoglobin 30 pg (28-32); Mean Corpuscular Volume 91 fl (84-94); Platelet Count 260 K/mm3 (140-440); Red Blood Count 3.64 M/mm3 (3.65-5.03); Red Cell Distribution Width 18.1 % (13.2-15.2); White Blood Count 17.2 K/mm3 (4.5-11.0)
[2017-02-21 09:02] LABS: BUN/Creatinine Ratio 25.29; Calcium 7.8 mg/dL (8.4-10.2); Chloride 98.9 mmol/L (98-107); Potassium 3.6 mmol/L (3.6-5.0)
[2017-02-21] MEDS: PERCOCET 5/325 PO PRN ×3 (10:21→23:58)
[2017-02-21] MEDS: LOVENOX SUB-Q SCH (10:21)
[2017-02-21] MEDS: VITAMIN B-1 PO SCH (10:22)
[2017-02-21] MEDS: DAKIN'S HALF STRENGTH TP SCH ×2 (10:22→23:47)
[2017-02-21] MEDS: PROTONIX PO SCH (10:22)
[2017-02-21 10:23] LABS: Blastocytes % (Manual) 0 %
[2017-02-21] MEDS: THERMAZENE 50 GRAM TP SCH ×2 (10:23→23:47)
[2017-02-21] MEDS: THERAGRAN Tab PO SCH (10:24)
[2017-02-21 10:26] LABS: Diff Status Complete; Platelet Estimate Consistent w Auto
[2017-02-21] MEDS: ZOSYN/NS 2.25 GM/50ML 2.25 GM/50 ML BAG IV SCH ×3 (12:30→23:45)
--- NOTE | 2017-02-21 13:25 | Progress Note ---
Assessment and Plan Assessment and plan: --Metabolic encephalopathy; mild improvement Multifactorial secondary to alcohol use possible early dementia And malnutrition, Closely monitor --Compression fracture T12: Check MRI of the spine, Supportive care with pain medications, physical therapy and stable --Chronic Alcohol abuse: Continue CIWA protocol, thiamine and folic acid, Counseling done patient advised to quit alcohol intake Patient may need alcohol rehabilitation upon discharge --Multiple decubitus ulcers/abrations and bruises: Wound care, s/p surgical debridement of sacral and gluteal decubitus ulcers per Dr. Henson Continue empiric antibiotics, Follow cultures --Hyponatremia; mild improvement replacement therapy with normal saline closely monitor electrolytes, --Hypertension; ; Moderate control, closely monitor blood pressures add when necessary hydralazine --DVT prophylaxis with Lovenox Full CODE STATUS Consults and recommendations noted and appreciated Patient's condition treatment plan discussed in detail with the patient his nurse as well as the case management History Interval history: Patient seen and evaluated in his room this morning Medical records reviewed, no new events reported by the nursing staff Patient underwent sacral and gluteal wound debridement done by Dr. Henson's This and has no new complaints except for back pain Alert awake oriented 3 not in acute distress Vital signs reviewed ,stable Hospitalist Physical - Constitutional Vitals: Temp Pulse Resp BP Pulse Ox 98.7 F 94 H 19 170/92 100 02/21/17 07:00 02/21/17 10:22 02/21/17 07:00 02/21/17 10:22 02/21/17 10:00 General appearance: Present: no acute distress, cachectic, disheveled - EENT Eyes: Present: PERRL, EOM intact - Neck Neck: Present: supple, normal ROM - Respiratory Respiratory effort: normal Respiratory: negative: rales, rhonchi, wheezing - Cardiovascular Rhythm: regular Heart Sounds: Present: S1 & S2 - Extremities Extremities: no ischemia, pulses intact, pulses symmetrical, abnormal (multiple abrasions and decubitus ulcers) Peripheral Pulses: within normal limits - Abdominal General gastrointestinal: soft, non-tender, non-distended, normal bowel sounds - Integumentary Integumentary: Present: clear, warm - Psychiatric Psychiatric: appropriate mood/affect, cooperative - Neurologic Neurologic: CNII-XII intact, moves all extremities Results - Labs CBC & Chem 7: 02/21/17 08:32 02/21/17 08:32 Labs: Laboratory Last Values WBC 17.2 K/mm3 (4.5-11.0) H 02/21/17 08:32 RBC 3.64 M/mm3 (3.65-5.03) L 02/21/17 08:32 Hgb 10.8 gm/dl (11.8-15.2) L 02/21/17 08:32 Hct 33.2 % (35.5-45.6) L 02/21/17 08:32 MCV 91 fl (84-94) 02/21/17 08:32 MCH 30 pg (28-32) 02/21/17 08:32 MCHC 33 % (32-34) 02/21/17 08:32 RDW 18.1 % (13.2-15.2) H 02/21/17 08:32 Plt Count 260 K/mm3 (140-440) 02/21/17 08:32 Add Manual Diff Complete 02/21/17 08:32 Total Counted 100 02/21/17 08:32 Seg Neutrophils % Polymerization Oven Tender 02/21/17 08:32 Seg Neuts % (Manual) 96.0 % (40.0-70.0) H 02/19/17 18:24 Band Neutrophils % 0 % 02/21/17 08:32 Lymphocytes % (Manual) 6.0 % (13.4-35.0) L 02/21/17 08:32 Reactive Lymphs % (Man) 0 % 02/21/17 08:32 Monocytes % (Manual) 0 % (0.0-7.3) 02/21/17 08:32 Eosinophils % (Manual) 1.0 % (0.0-4.3) 02/21/17 08:32 Basophils % (Manual) 0 % (0.0-1.8) 02/19/17 18:24 Metamyelocytes % 0 % 02/21/17 08:32 Myelocytes % 0 % 02/21/17 08:32 Promyelocytes % 0 % 02/21/17 08:32 Blast Cells % 0 % 02/21/17 08:32 Nucleated RBC % Not Reportable 02/21/17 08:32 Seg Neutrophils # Man 16.0 K/mm3 (1.8-7.7) H 02/21/17 08:32 Band Neutrophils # 0.0 K/mm3 02/21/17 08:32 Lymphocytes # (Manual) 1.0 K/mm3 (1.2-5.4) L 02/21/17 08:32 Abs React Lymphs (Man) 0.0 K/mm3 02/21/17 08:32 Monocytes # (Manual) 0.0 K/mm3 (0.0-0.8) 02/21/17 08:32 Eosinophils # (Manual) 0.2 K/mm3 (0.0-0.4) 02/21/17 08:32 Basophils # (Manual) 0.0 K/mm3 (0.0-0.1) 02/21/17 08:32 Metamyelocytes # 0.0 K/mm3 02/21/17 08:32 Myelocytes # 0.0 K/mm3 02/21/17 08:32 Promyelocytes # 0.0 K/mm3 02/21/17 08:32 Blast Cells # 0.0 K/mm3 02/21/17 08:32 WBC Morphology Not Reportable 02/21/17 08:32 Hypersegmented Neuts Not Reportable 02/21/17 08:32 Hyposegmented Neuts Not Reportable 02/21/17 08:32 Hypogranular Neuts Not Reportable 02/21/17 08:32 Smudge Cells Not Reportable 02/21/17 08:32 Toxic Granulation Not Reportable 02/21/17 08:32 Toxic Vacuolation Not Reportable 02/21/17 08:32 Dohle Bodies Not Reportable 02/21/17 08:32 Pelger-Huet Anomaly Not Reportable 02/21/17 08:32 Carol Rods Not Reportable 02/21/17 08:32 Platelet Estimate Consistent w auto 02/21/17 08:32 Clumped Platelets Not Reportable 02/21/17 08:32 Plt Clumps, EDTA Not Reportable 02/21/17 08:32 Large Platelets Not Reportable 02/21/17 08:32 Giant Platelets Not Reportable 02/21/17 08:32 Platelet Satelliting Not Reportable 02/21/17 08:32 Plt Morphology Comment Not Reportable 02/21/17 08:32 RBC Morphology Not Reportable 02/21/17 08:32 Dimorphic RBCs Not Reportable 02/21/17 08:32 Polychromasia Not Reportable 02/21/17 08:32 Hypochromasia Not Reportable 02/21/17 08:32 Poikilocytosis Not Reportable 02/21/17 08:32 Anisocytosis Not Reportable 02/21/17 08:32 Microcytosis Not Reportable 02/21/17 08:32 Macrocytosis Not Reportable 02/21/17 08:32 Spherocytes Not Reportable 02/21/17 08:32 Pappenheimer Bodies Not Reportable 02/21/17 08:32 Sickle Cells Not Reportable 02/21/17 08:32 Target Cells Not Reportable 02/21/17 08:32 Tear Drop Cells Not Reportable 02/21/17 08:32 Ovalocytes Not Reportable 02/21/17 08:32 Helmet Cells Not Reportable 02/21/17 08:32 [place] Bodies Not Reportable 02/21/17 08:32 [place] Rings Not Reportable 02/21/17 08:32 [place] Cells Not Reportable 02/21/17 08:32 Bite Cells Not Reportable 02/21/17 08:32 Crenated Cell Not Reportable 02/21/17 08:32 Elliptocytes Not Reportable 02/21/17 08:32 Acanthocytes (Spur) Not Reportable 02/21/17 08:32 Rouleaux Not Reportable 02/21/17 08:32 Hemoglobin C Crystals Not Reportable 02/21/17 08:32 Schistocytes Not Reportable 02/21/17 08:32 Malaria parasites Not Reportable 02/21/17 08:32 Star Bodies Not Reportable 02/21/17 08:32 Hem Pathologist Commnt No 02/21/17 08:32 Sodium 132 mmol/L (137-145) L 02/21/17 08:32 Potassium 3.6 mmol/L (3.6-5.0) 02/21/17 08:32 Chloride 98.9 mmol/L (98-107) 02/21/17 08:32 Carbon Dioxide 17 mmol/L (22-30) L 02/21/17 08:32 Anion Gap 20 mmol/L 02/21/17 08:32 BUN 43 mg/dL (9-20) H 02/21/17 08:32 Creatinine 1.7 mg/dL (0.8-1.5) H 02/21/17 08:32 Estimated GFR 41 ml/min 02/21/17 08:32 BUN/Creatinine Ratio 25.29 % 02/21/17 08:32 Glucose 69 mg/dL (75-100) L 02/21/17 08:32 Lactic Acid 1.50 mmol/L (0.7-2.0) 02/19/17 Unknown Calcium 7.8 mg/dL (8.4-10.2) L 02/21/17 08:32 Total Bilirubin 1.10 mg/dL (0.1-1.2) 02/19/17 18:24 AST 29 units/L (5-40) 02/19/17 18:24 ALT 12 units/L (7-56) 02/19/17 18:24 Alkaline Phosphatase 146 units/L (35-129) H 02/19/17 18:24 Total Creatine Kinase 498 units/L (55-170) H 02/19/17 18:24 Total Protein 6.0 g/dL (6.3-8.2) L 02/19/17 18:24 Albumin 2.5 g/dL (3.9-5) L 02/19/17 18:24 Albumin/Globulin Ratio 0.7 % 02/19/17 18:24 Urine Color Carmen (Yellow) 02/19/17 22:15 Urine Turbidity Clear (Clear) 02/19/17 22:15 Urine pH 5.0 (5.0-7.0) 02/19/17 22:15 Ur Specific [place] 1.015 (1.003-1.030) 02/19/17 22:15 Urine Protein 30 mg/dl mg/dL (Negative) 02/19/17 22:15 Urine Glucose (UA) Neg mg/dL (Negative) 02/19/17 22:15 Urine Ketones Neg mg/dL (Negative) 02/19/17 22:15 Urine Blood Sm (Negative) 02/19/17 22:15 Urine Nitrite Neg (Negative) 02/19/17 22:15 Urine Bilirubin Neg (Negative) 02/19/17 22:15 Urine Urobilinogen 4.0 mg/dL (<2.0) 02/19/17 22:15 Ur Leukocyte Esterase Neg (Negative) 02/19/17 22:15 Urine WBC (Auto) 3.0 /HPF (0.0-6.0) 02/19/17 22:15 Urine RBC (Auto) 1.0 /HPF (0.0-6.0) 02/19/17 22:15 Amorphous Crystals Few 02/19/17 22:15
[2017-02-21] MEDS: DESYREL PO SCH (23:45)
[2017-02-22] MEDS: DAKIN'S HALF STRENGTH TP SCH ×4 (01:30→23:18)
[2017-02-22] MEDS: THERMAZENE 50 GRAM TP SCH ×4 (01:31→23:19)
[2017-02-22] MEDS: ZOSYN/NS 2.25 GM/50ML 2.25 GM/50 ML BAG IV SCH ×4 (05:29→23:11)
[2017-02-22] MEDS: NACL 0.9% 1000 ML 1,000 ML IV SCH ×2 (05:29→23:18)
[2017-02-22 06:58] LABS: Hematocrit 32.9 % (35.5-45.6); Mean Corpuscular HGB Conc 31 % (32-34); Mean Corpuscular Hemoglobin 29 pg (28-32); Platelet Count 160 K/mm3 (140-440); Red Blood Count 3.42 M/mm3 (3.65-5.03); Red Cell Distribution Width 18.9 % (13.2-15.2); White Blood Count 12.9 K/mm3 (4.5-11.0)
[2017-02-22 07:01] LABS: Mean Corpuscular Volume 93 fl (84-94)
[2017-02-22 07:18] LABS: BUN/Creatinine Ratio 23.33; Calcium 7.9 mg/dL (8.4-10.2); Chloride 101.7 mmol/L (98-107); Magnesium 1.4 mg/dL (1.7-2.3); Potassium 3.9 mmol/L (3.6-5.0)
[2017-02-22 07:49] LABS: Anisocytosis 1+; Basophils % (Manual) 0 % (0.0-1.8); Blastocytes % (Manual) 0 %; Elliptocytes Few; Eosinophils % (Manual) 0 % (0.0-4.3); Hypochromasia 1+
[2017-02-22 07:50] LABS: Diff Status Complete; Platelet Estimate Consistent w Auto
[2017-02-22] MEDS ORDERED: MAGNESIUM SULFATE 3 GM in NACL 0.9% 100 ML IV ONE (08:30)
[2017-02-22] MEDS: LOPRESSOR PO SCH ×2 (09:48→23:12)
[2017-02-22] MEDS: THERAGRAN Tab PO SCH (09:49)
[2017-02-22] MEDS: LOVENOX SUB-Q SCH (09:49)
[2017-02-22] MEDS: PROTONIX PO SCH (09:49)
[2017-02-22] MEDS: VITAMIN B-1 PO SCH (09:50)
[2017-02-22] MEDS: PERCOCET 5/325 PO PRN ×2 (12:10→23:12)
--- NOTE | 2017-02-22 12:38 | Magnetic Resonance Report ---
MRI THORACIC SPINE WITHOUT CONTRAST: 02/21/17 CLINICAL: Back pain and T12 compression fracture by CT. TECHNIQUE: Sagittal and axial T1 and T2, and sagittal STIR sequences on a 1.5 Dorothy magnet. FINDINGS: The overall marrow signal is normal. A 6 mm oval lesion of T7 to the right of midline is hypointense on T1 and hyperintense on T2 and STIR. It is only identified on the sagittal sequences and is not identified on axial T1 or T2 sequences. No other lesions are identified. Moderate anterior wedge compression fracture of T12 as seen on the recent CT lumbar spine. The predominant signal in the vertebral body is normal on T1, T2 and STIR. Mild hyperintense signal at the margins of the fracture and in the T11-12 disc on T2 and STIR. Mild retropulsion of bone and disc at the T11-12 disc level but no cord compression. The spinal cord is normal size with normal signal.The rest of the discs are intact. IMPRESSION: 1. Chronic T12 anterior wedge compression fracture and no other fracture. 2. No cord compression or cord lesion. 3. A 6 mm oval lesion of the T7 vertebral body is of uncertain significance. However, recommend a contrast MRI thoracic spine for further evaluation. This lesion would be suspicious for a metastatic lesion particularly if there is a known primary tumor.
--- NOTE | 2017-02-22 14:12 | Progress Note ---
Assessment and Plan Assessment and plan: --Metabolic encephalopathy Multifactorial secondary to alcohol use possible early dementia And malnutrition,Closely monitor --Compression fracture T12 Check MRI of the spine; old fracture No new acute abnormalities noted Consults and recommendations noted and appreciated --Chronic Alcohol abuse Closely monitor for any withdrawal symptoms Continue [facility] protocol --Multiple decubitus ulcers/abrations and bruises Wound care, surgical consultation for possible debridement, empiric antibiotics Follow cultures --Hyponatremia; replacement therapy with normal saline closely monitor electrolytes, --Hypertension; Moderate control, closely monitor blood pressures add when necessary hydralazine --DVT prophylaxis with Lovenox Full CODE STATUS Consults and recommendations noted and appreciated Patient's condition treatment plan discussed in detail with the patient his nurse as well as the case management History Interval history: Patient seen and evaluated medical records reviewed Patient is lethargic responding to very simple questions appropriately Has history of chronic alcohol use, on [facility] protocol Alert awake not in acute distress Vital signs reviewed Hospitalist Physical - Constitutional Vitals: Temp Pulse Resp BP Pulse Ox 97.5 F L 67 24 170/88 99 02/22/17 07:50 02/22/17 09:48 02/22/17 07:50 02/22/17 09:48 02/22/17 10:00 General appearance: Present: no acute distress, cachectic, disheveled - EENT Eyes: Present: PERRL, EOM intact - Neck Neck: Present: supple, normal ROM - Respiratory Respiratory effort: normal Respiratory: bilateral: diminished, negative: rales, rhonchi, wheezing - Cardiovascular Rhythm: regular Heart Sounds: Present: S1 & S2 - Extremities Extremities: no ischemia, pulses intact Peripheral Pulses: within normal limits - Abdominal General gastrointestinal: soft, non-tender, non-distended, normal bowel sounds - Integumentary Integumentary: Present: clear, warm - Psychiatric Psychiatric: appropriate mood/affect, cooperative, other (confused at times confused at times) - Neurologic Neurologic: CNII-XII intact, focal deficits Results - Labs CBC & Chem 7: 02/22/17 06:28 02/22/17 06:16 Labs: Laboratory Last Values WBC 12.9 K/mm3 (4.5-11.0) H 02/22/17 06:28 RBC 3.42 M/mm3 (3.65-5.03) L 02/22/17 06:28 Hgb 10.0 gm/dl (11.8-15.2) L 02/22/17 06:28 Hct 32.9 % (35.5-45.6) L 02/22/17 06:28 MCV 93 fl (84-94) 02/22/17 06:28 MCH 29 pg (28-32) 02/22/17 06:28 MCHC 31 % (32-34) L 02/22/17 06:28 RDW 18.9 % (13.2-15.2) H 02/22/17 06:28 Plt Count 160 K/mm3 (140-440) 02/22/17 06:28 Add Manual Diff Complete 02/22/17 06:28 Total Counted 100 02/22/17 06:28 Seg Neutrophils % Lead Mechanic 02/22/17 06:28 Seg Neuts % (Manual) 81.0 % (40.0-70.0) H 02/22/17 06:28 Band Neutrophils % 7.0 % 02/22/17 06:28 Lymphocytes % (Manual) 8.0 % (13.4-35.0) L 02/22/17 06:28 Reactive Lymphs % (Man) 0 % 02/22/17 06:28 Monocytes % (Manual) 4.0 % (0.0-7.3) 02/22/17 06:28 Eosinophils % (Manual) 0 % (0.0-4.3) 02/22/17 06:28 Basophils % (Manual) 0 % (0.0-1.8) 02/22/17 06:28 Metamyelocytes % 0 % 02/22/17 06:28 Myelocytes % 0 % 02/22/17 06:28 Promyelocytes % 0 % 02/22/17 06:28 Blast Cells % 0 % 02/22/17 06:28 Nucleated RBC % Not Reportable 02/22/17 06:28 Seg Neutrophils # Man 10.4 K/mm3 (1.8-7.7) H 02/22/17 06:28 Band Neutrophils # 0.9 K/mm3 02/22/17 06:28 Lymphocytes # (Manual) 1.0 K/mm3 (1.2-5.4) L 02/22/17 06:28 Abs React Lymphs (Man) 0.0 K/mm3 02/22/17 06:28 Monocytes # (Manual) 0.5 K/mm3 (0.0-0.8) 02/22/17 06:28 Eosinophils # (Manual) 0.0 K/mm3 (0.0-0.4) 02/22/17 06:28 Basophils # (Manual) 0.0 K/mm3 (0.0-0.1) 02/22/17 06:28 Metamyelocytes # 0.0 K/mm3 02/22/17 06:28 Myelocytes # 0.0 K/mm3 02/22/17 06:28 Promyelocytes # 0.0 K/mm3 02/22/17 06:28 Blast Cells # 0.0 K/mm3 02/22/17 06:28 WBC Morphology Not Reportable 02/22/17 06:28 Hypersegmented Neuts Not Reportable 02/22/17 06:28 Hyposegmented Neuts Not Reportable 02/22/17 06:28 Hypogranular Neuts Not Reportable 02/22/17 06:28 Smudge Cells Not Reportable 02/22/17 06:28 Toxic Granulation Not Reportable 02/22/17 06:28 Toxic Vacuolation Not Reportable 02/22/17 06:28 Dohle Bodies Not Reportable 02/22/17 06:28 Pelger-Huet Anomaly Not Reportable 02/22/17 06:28 Carol Rods Not Reportable 02/22/17 06:28 Platelet Estimate Consistent w auto 02/22/17 06:28 Clumped Platelets Not Reportable 02/22/17 06:28 Plt Clumps, EDTA Not Reportable 02/22/17 06:28 Large Platelets Not Reportable 02/22/17 06:28 Giant Platelets Not Reportable 02/22/17 06:28 Platelet Satelliting Not Reportable 02/22/17 06:28 Plt Morphology Comment Not Reportable 02/22/17 06:28 RBC Morphology Not Reportable 02/22/17 06:28 Dimorphic RBCs Not Reportable 02/22/17 06:28 Polychromasia Not Reportable 02/22/17 06:28 Hypochromasia 1+ 02/22/17 06:28 Poikilocytosis Not Reportable 02/22/17 06:28 Anisocytosis 1+ 02/22/17 06:28 Microcytosis Not Reportable 02/22/17 06:28 Macrocytosis Not Reportable 02/22/17 06:28 Spherocytes Not Reportable 02/22/17 06:28 Pappenheimer Bodies Not Reportable 02/22/17 06:28 Sickle Cells Not Reportable 02/22/17 06:28 Target Cells Not Reportable 02/22/17 06:28 Tear Drop Cells Not Reportable 02/22/17 06:28 Ovalocytes Not Reportable 02/22/17 06:28 Helmet Cells Not Reportable 02/22/17 06:28 [place] Bodies Not Reportable 02/22/17 06:28 [place] Rings Not Reportable 02/22/17 06:28 Ruth Cells Not Reportable 02/22/17 06:28 Bite Cells Not Reportable 02/22/17 06:28 Crenated Cell Not Reportable 02/22/17 06:28 Elliptocytes Few 02/22/17 06:28 Acanthocytes (Spur) Not Reportable 02/22/17 06:28 Rouleaux Not Reportable 02/22/17 06:28 Hemoglobin C Crystals Not Reportable 02/22/17 06:28 Schistocytes Not Reportable 02/22/17 06:28 Malaria parasites Not Reportable 02/22/17 06:28 Star Bodies Not Reportable 02/22/17 06:28 Hem Pathologist Commnt No 02/22/17 06:28 Sodium 131 mmol/L (137-145) L 02/22/17 06:16 Potassium 3.9 mmol/L (3.6-5.0) 02/22/17 06:16 Chloride 101.7 mmol/L (98-107) 02/22/17 06:16 Carbon Dioxide 16 mmol/L (22-30) L 02/22/17 06:16 Anion Gap 17 mmol/L 02/22/17 06:16 BUN 35 mg/dL (9-20) H 02/22/17 06:16 Creatinine 1.5 mg/dL (0.8-1.5) 02/22/17 06:16 Estimated GFR 47 ml/min 02/22/17 06:16 BUN/Creatinine Ratio 23.33 % 02/22/17 06:16 Glucose 69 mg/dL (75-100) L 02/22/17 06:16 Lactic Acid 1.50 mmol/L (0.7-2.0) 02/19/17 Unknown Calcium 7.9 mg/dL (8.4-10.2) L 02/22/17 06:16 Magnesium 1.40 mg/dL (1.7-2.3) L 02/22/17 06:16 Total Bilirubin 1.10 mg/dL (0.1-1.2) 02/19/17 18:24 AST 29 units/L (5-40) 02/19/17 18:24 ALT 12 units/L (7-56) 02/19/17 18:24 Alkaline Phosphatase 146 units/L (35-129) H 02/19/17 18:24 Total Creatine Kinase 498 units/L (55-170) H 02/19/17 18:24 Total Protein 6.0 g/dL (6.3-8.2) L 02/19/17 18:24 Albumin 2.5 g/dL (3.9-5) L 02/19/17 18:24 Albumin/Globulin Ratio 0.7 % 02/19/17 18:24 Urine Color Carmen (Yellow) 02/19/17 22:15 Urine Turbidity Clear (Clear) 02/19/17 22:15 Urine pH 5.0 (5.0-7.0) 02/19/17 22:15 Ur Specific [place] 1.015 (1.003-1.030) 02/19/17 22:15 Urine Protein 30 mg/dl mg/dL (Negative) 02/19/17 22:15 Urine Glucose (UA) Neg mg/dL (Negative) 02/19/17 22:15 Urine Ketones Neg mg/dL (Negative) 02/19/17 22:15 Urine Blood Sm (Negative) 02/19/17 22:15 Urine Nitrite Neg (Negative) 02/19/17 22:15 Urine Bilirubin Neg (Negative) 02/19/17 22:15 Urine Urobilinogen 4.0 mg/dL (<2.0) 02/19/17 22:15 Ur Leukocyte Esterase Neg (Negative) 02/19/17 22:15 Urine WBC (Auto) 3.0 /HPF (0.0-6.0) 02/19/17 22:15 Urine RBC (Auto) 1.0 /HPF (0.0-6.0) 02/19/17 22:15 Amorphous Crystals Few 02/19/17 22:15
[2017-02-22] MEDS: ATIVAN IV PRN (15:57)
[2017-02-22] MEDS: DESYREL PO SCH (23:12)
[2017-02-23] MEDS: PERCOCET 5/325 PO PRN ×4 (03:52→22:54)
[2017-02-23] MEDS: ZOSYN/NS 2.25 GM/50ML 2.25 GM/50 ML BAG IV SCH ×4 (05:38→23:35)
[2017-02-23 08:26] LABS: Magnesium 1.7 mg/dL (1.7-2.3); Potassium 4.7 mmol/L (3.6-5.0)
[2017-02-23] MEDS: LOVENOX SUB-Q SCH (11:11)
[2017-02-23] MEDS: DAKIN'S HALF STRENGTH TP SCH (11:11)
[2017-02-23] MEDS: THERMAZENE 50 GRAM TP SCH (11:11)
[2017-02-23] MEDS: VITAMIN B-1 PO SCH (11:12)
[2017-02-23] MEDS: LOPRESSOR PO SCH ×2 (11:12→22:54)
[2017-02-23] MEDS: THERAGRAN Tab PO SCH (11:12)
[2017-02-23] MEDS: PROTONIX PO SCH (11:14)
--- NOTE | 2017-02-23 13:30 | Progress Note ---
Assessment and Plan Assessment and plan: --Multiple decubitus ulcers/abrations and bruises Wound care, status post surgical debridement, empiric antibiotics Follow cultures --Metabolic encephalopathy Multifactorial secondary to alcohol use possible early dementia And malnutrition,Closely monitor --Compression fracture T12 Check MRI of the spine; check thoracic spine MRI with contrast No new acute abnormalities noted Consults and recommendations noted and appreciated --Chronic Alcohol abuse Closely monitor for any withdrawal symptoms Continue [facility] protocol --Hyponatremia; Corrected, continue gentle hydration --Hypertension; Well-controlled continue current medications --DVT prophylaxis with Lovenox Full CODE STATUS Consults and recommendations noted and appreciated Patient's condition treatment plan discussed in detail with the patient his nurse as well as the case management Physical therapy occupational therapy DC planning case management possible placement History Interval history: Patient seen and evaluated medical records reviewed Lethargic, responding to simple questions appropriately On [facility] protocol Vital signs reviewed stable Hospitalist Physical - Constitutional Vitals: Temp Pulse Resp BP Pulse Ox 97.9 F 63 16 124/61 98 02/23/17 07:10 02/23/17 07:10 02/23/17 07:10 02/23/17 07:10 02/23/17 10:00 General appearance: Present: no acute distress, disheveled - EENT Eyes: Present: PERRL, EOM intact - Neck Neck: Present: supple, normal ROM - Respiratory Respiratory effort: normal Respiratory: bilateral: diminished, negative: rales, rhonchi, wheezing - Cardiovascular Rhythm: regular Heart Sounds: Present: S1 & S2 - Extremities Extremities: no ischemia, pulses intact, pulses symmetrical, abnormal (multiple bruises and decubitus ulcers) Peripheral Pulses: within normal limits - Abdominal General gastrointestinal: soft, non-tender, non-distended, normal bowel sounds - Integumentary Integumentary: Present: clear, warm - Psychiatric Psychiatric: appropriate mood/affect, cooperative - Neurologic Neurologic: CNII-XII intact, moves all extremities Results - Labs CBC & Chem 7: 02/22/17 06:28 02/23/17 06:57 Labs: Laboratory Last Values WBC 12.9 K/mm3 (4.5-11.0) H 02/22/17 06:28 RBC 3.42 M/mm3 (3.65-5.03) L 02/22/17 06:28 Hgb 10.0 gm/dl (11.8-15.2) L 02/22/17 06:28 Hct 32.9 % (35.5-45.6) L 02/22/17 06:28 MCV 93 fl (84-94) 02/22/17 06:28 MCH 29 pg (28-32) 02/22/17 06:28 MCHC 31 % (32-34) L 02/22/17 06:28 RDW 18.9 % (13.2-15.2) H 02/22/17 06:28 Plt Count 160 K/mm3 (140-440) 02/22/17 06:28 Add Manual Diff Complete 02/22/17 06:28 Total Counted 100 02/22/17 06:28 Seg Neutrophils % Nursery Supervisor 02/22/17 06:28 Seg Neuts % (Manual) 81.0 % (40.0-70.0) H 02/22/17 06:28 Band Neutrophils % 7.0 % 02/22/17 06:28 Lymphocytes % (Manual) 8.0 % (13.4-35.0) L 02/22/17 06:28 Reactive Lymphs % (Man) 0 % 02/22/17 06:28 Monocytes % (Manual) 4.0 % (0.0-7.3) 02/22/17 06:28 Eosinophils % (Manual) 0 % (0.0-4.3) 02/22/17 06:28 Basophils % (Manual) 0 % (0.0-1.8) 02/22/17 06:28 Metamyelocytes % 0 % 02/22/17 06:28 Myelocytes % 0 % 02/22/17 06:28 Promyelocytes % 0 % 02/22/17 06:28 Blast Cells % 0 % 02/22/17 06:28 Nucleated RBC % Not Reportable 02/22/17 06:28 Seg Neutrophils # Man 10.4 K/mm3 (1.8-7.7) H 02/22/17 06:28 Band Neutrophils # 0.9 K/mm3 02/22/17 06:28 Lymphocytes # (Manual) 1.0 K/mm3 (1.2-5.4) L 02/22/17 06:28 Abs React Lymphs (Man) 0.0 K/mm3 02/22/17 06:28 Monocytes # (Manual) 0.5 K/mm3 (0.0-0.8) 02/22/17 06:28 Eosinophils # (Manual) 0.0 K/mm3 (0.0-0.4) 02/22/17 06:28 Basophils # (Manual) 0.0 K/mm3 (0.0-0.1) 02/22/17 06:28 Metamyelocytes # 0.0 K/mm3 02/22/17 06:28 Myelocytes # 0.0 K/mm3 02/22/17 06:28 Promyelocytes # 0.0 K/mm3 02/22/17 06:28 Blast Cells # 0.0 K/mm3 02/22/17 06:28 WBC Morphology Not Reportable 02/22/17 06:28 Hypersegmented Neuts Not Reportable 02/22/17 06:28 Hyposegmented Neuts Not Reportable 02/22/17 06:28 Hypogranular Neuts Not Reportable 02/22/17 06:28 Smudge Cells Not Reportable 02/22/17 06:28 Toxic Granulation Not Reportable 02/22/17 06:28 Toxic Vacuolation Not Reportable 02/22/17 06:28 Dohle Bodies Not Reportable 02/22/17 06:28 Pelger-Huet Anomaly Not Reportable 02/22/17 06:28 Carol Rods Not Reportable 02/22/17 06:28 Platelet Estimate Consistent w auto 02/22/17 06:28 Clumped Platelets Not Reportable 02/22/17 06:28 Plt Clumps, EDTA Not Reportable 02/22/17 06:28 Large Platelets Not Reportable 02/22/17 06:28 Giant Platelets Not Reportable 02/22/17 06:28 Platelet Satelliting Not Reportable 02/22/17 06:28 Plt Morphology Comment Not Reportable 02/22/17 06:28 RBC Morphology Not Reportable 02/22/17 06:28 Dimorphic RBCs Not Reportable 02/22/17 06:28 Polychromasia Not Reportable 02/22/17 06:28 Hypochromasia 1+ 02/22/17 06:28 Poikilocytosis Not Reportable 02/22/17 06:28 Anisocytosis 1+ 02/22/17 06:28 Microcytosis Not Reportable 02/22/17 06:28 Macrocytosis Not Reportable 02/22/17 06:28 Spherocytes Not Reportable 02/22/17 06:28 Pappenheimer Bodies Not Reportable 02/22/17 06:28 Sickle Cells Not Reportable 02/22/17 06:28 Target Cells Not Reportable 02/22/17 06:28 Tear Drop Cells Not Reportable 02/22/17 06:28 Ovalocytes Not Reportable 02/22/17 06:28 Helmet Cells Not Reportable 02/22/17 06:28 [place] Bodies Not Reportable 02/22/17 06:28 [place] Rings Not Reportable 02/22/17 06:28 Ruth Cells Not Reportable 02/22/17 06:28 Bite Cells Not Reportable 02/22/17 06:28 Crenated Cell Not Reportable 02/22/17 06:28 Elliptocytes Few 02/22/17 06:28 Acanthocytes (Spur) Not Reportable 02/22/17 06:28 Rouleaux Not Reportable 02/22/17 06:28 Hemoglobin C Crystals Not Reportable 02/22/17 06:28 Schistocytes Not Reportable 02/22/17 06:28 Malaria parasites Not Reportable 02/22/17 06:28 Star Bodies Not Reportable 02/22/17 06:28 Hem Pathologist Commnt No 02/22/17 06:28 Sodium 131 mmol/L (137-145) L 02/22/17 06:16 Potassium 4.7 mmol/L (3.6-5.0) D 02/23/17 06:57 Chloride 101.7 mmol/L (98-107) 02/22/17 06:16 Carbon Dioxide 16 mmol/L (22-30) L 02/22/17 06:16 Anion Gap 17 mmol/L 02/22/17 06:16 BUN 35 mg/dL (9-20) H 02/22/17 06:16 Creatinine 1.5 mg/dL (0.8-1.5) 02/22/17 06:16 Estimated GFR 47 ml/min 02/22/17 06:16 BUN/Creatinine Ratio 23.33 % 02/22/17 06:16 Glucose 69 mg/dL (75-100) L 02/22/17 06:16 Lactic Acid 1.50 mmol/L (0.7-2.0) 02/19/17 Unknown Calcium 7.9 mg/dL (8.4-10.2) L 02/22/17 06:16 Magnesium 1.70 mg/dL (1.7-2.3) 02/23/17 06:57 Total Bilirubin 1.10 mg/dL (0.1-1.2) 02/19/17 18:24 AST 29 units/L (5-40) 02/19/17 18:24 ALT 12 units/L (7-56) 02/19/17 18:24 Alkaline Phosphatase 146 units/L (35-129) H 02/19/17 18:24 Total Creatine Kinase 498 units/L (55-170) H 02/19/17 18:24 Total Protein 6.0 g/dL (6.3-8.2) L 02/19/17 18:24 Albumin 2.5 g/dL (3.9-5) L 02/19/17 18:24 Albumin/Globulin Ratio 0.7 % 02/19/17 18:24 Urine Color Carmen (Yellow) 02/19/17 22:15 Urine Turbidity Clear (Clear) 02/19/17 22:15 Urine pH 5.0 (5.0-7.0) 02/19/17 22:15 Ur Specific [place] 1.015 (1.003-1.030) 02/19/17 22:15 Urine Protein 30 mg/dl mg/dL (Negative) 02/19/17 22:15 Urine Glucose (UA) Neg mg/dL (Negative) 02/19/17 22:15 Urine Ketones Neg mg/dL (Negative) 02/19/17 22:15 Urine Blood Sm (Negative) 02/19/17 22:15 Urine Nitrite Neg (Negative) 02/19/17 22:15 Urine Bilirubin Neg (Negative) 02/19/17 22:15 Urine Urobilinogen 4.0 mg/dL (<2.0) 02/19/17 22:15 Ur Leukocyte Esterase Neg (Negative) 02/19/17 22:15 Urine WBC (Auto) 3.0 /HPF (0.0-6.0) 02/19/17 22:15 Urine RBC (Auto) 1.0 /HPF (0.0-6.0) 02/19/17 22:15 Amorphous Crystals Few 02/19/17 22:15
[2017-02-23] MEDS: DESYREL PO SCH (22:53)
[2017-02-23] MEDS: NACL 0.9% 1000 ML 1,000 ML IV SCH (23:35)
[2017-02-24] MEDS: ZOSYN/NS 2.25 GM/50ML 2.25 GM/50 ML BAG IV SCH ×3 (05:55→18:47)
[2017-02-24] MEDS: PERCOCET 5/325 PO PRN ×3 (06:10→18:08)
--- NOTE | 2017-02-24 08:11 | Progress Note ---
Assessment and Plan Assessment and plan: --Metabolic encephalopathy Multifactorial secondary to alcohol use possible early dementia And malnutrition, sepsis ,Closely monitor --Multiple decubitus ulcers/abrations and bruises Wound care, status post surgical debridement by Dr. Henson, empiric antibiotics cultures negative to date --Compression fracture T12 Follow MRI of Tspine contrast IR feels not a candidate for kyphoplasty, consult orthopedics Supportive care, physical therapy occupational therapy --Chronic Alcohol abuse/cause withdrawal symptoms Continue [facility] protocol --Hyponatremia; Corrected, continue gentle hydration --Hypertension; Well-controlled continue current medications --DVT prophylaxis with Lovenox --DC planning; possible placement to SNF Full CODE STATUS Consults and recommendations noted and appreciated Patient's condition treatment plan discussed in detail with the patient his nurse as well as the case management History Interval history: 66-year-old man with history of hypertension, PTSD, seizure had difficulty ambulating since he had a fall 4 days prior to admission. Noted to have multiple bruises and abrasions, decubitus ulceration alcohol withdrawal symptoms , being managed by wound care status post debridement, on [facility] protocol Patient has chronic T12 compression fracture with the acute pain, workup is in progress, IR, no indication for kyphoplasty, consulted orthopedics Patient seen and evaluated in his room this morning medical records reviewed No new events reported by the nursing staff Patient continues to complain back pain, MRI spine with contrast is pending Alert and awake sometimes drowsy and confused On [facility] protocol Hospitalist Physical - Constitutional Vitals: Temp Pulse Resp BP Pulse Ox 97.6 F 64 16 97/56 100 02/24/17 00:00 02/24/17 00:00 02/24/17 00:00 02/24/17 00:00 02/23/17 21:58 General appearance: Present: no acute distress, disheveled - EENT Eyes: Present: PERRL, EOM intact - Neck Neck: Present: supple, normal ROM - Respiratory Respiratory effort: normal Respiratory: negative: rales, rhonchi, wheezing - Cardiovascular Rhythm: regular Heart Sounds: Present: S1 & S2 - Extremities Extremities: no ischemia, pulses intact, pulses symmetrical, abnormal (multiple chronic ablations, decubitus ulcers) Peripheral Pulses: within normal limits - Abdominal General gastrointestinal: soft, non-tender, non-distended, normal bowel sounds - Integumentary Integumentary: Present: clear, warm - Psychiatric Psychiatric: appropriate mood/affect, cooperative - Neurologic Neurologic: CNII-XII intact, moves all extremities Results - Labs CBC & Chem 7: 02/22/17 06:28 02/23/17 06:57 Labs: Laboratory Last Values WBC 12.9 K/mm3 (4.5-11.0) H 02/22/17 06:28 RBC 3.42 M/mm3 (3.65-5.03) L 02/22/17 06:28 Hgb 10.0 gm/dl (11.8-15.2) L 02/22/17 06:28 Hct 32.9 % (35.5-45.6) L 02/22/17 06:28 MCV 93 fl (84-94) 02/22/17 06:28 MCH 29 pg (28-32) 02/22/17 06:28 MCHC 31 % (32-34) L 02/22/17 06:28 RDW 18.9 % (13.2-15.2) H 02/22/17 06:28 Plt Count 160 K/mm3 (140-440) 02/22/17 06:28 Add Manual Diff Complete 02/22/17 06:28 Total Counted 100 02/22/17 06:28 Seg Neutrophils % Private Security Guard 02/22/17 06:28 Seg Neuts % (Manual) 81.0 % (40.0-70.0) H 02/22/17 06:28 Band Neutrophils % 7.0 % 02/22/17 06:28 Lymphocytes % (Manual) 8.0 % (13.4-35.0) L 02/22/17 06:28 Reactive Lymphs % (Man) 0 % 02/22/17 06:28 Monocytes % (Manual) 4.0 % (0.0-7.3) 02/22/17 06:28 Eosinophils % (Manual) 0 % (0.0-4.3) 02/22/17 06:28 Basophils % (Manual) 0 % (0.0-1.8) 02/22/17 06:28 Metamyelocytes % 0 % 02/22/17 06:28 Myelocytes % 0 % 02/22/17 06:28 Promyelocytes % 0 % 02/22/17 06:28 Blast Cells % 0 % 02/22/17 06:28 Nucleated RBC % Not Reportable 02/22/17 06:28 Seg Neutrophils # Man 10.4 K/mm3 (1.8-7.7) H 02/22/17 06:28 Band Neutrophils # 0.9 K/mm3 02/22/17 06:28 Lymphocytes # (Manual) 1.0 K/mm3 (1.2-5.4) L 02/22/17 06:28 Abs React Lymphs (Man) 0.0 K/mm3 02/22/17 06:28 Monocytes # (Manual) 0.5 K/mm3 (0.0-0.8) 02/22/17 06:28 Eosinophils # (Manual) 0.0 K/mm3 (0.0-0.4) 02/22/17 06:28 Basophils # (Manual) 0.0 K/mm3 (0.0-0.1) 02/22/17 06:28 Metamyelocytes # 0.0 K/mm3 02/22/17 06:28 Myelocytes # 0.0 K/mm3 02/22/17 06:28 Promyelocytes # 0.0 K/mm3 02/22/17 06:28 Blast Cells # 0.0 K/mm3 02/22/17 06:28 WBC Morphology Not Reportable 02/22/17 06:28 Hypersegmented Neuts Not Reportable 02/22/17 06:28 Hyposegmented Neuts Not Reportable 02/22/17 06:28 Hypogranular Neuts Not Reportable 02/22/17 06:28 Smudge Cells Not Reportable 02/22/17 06:28 Toxic Granulation Not Reportable 02/22/17 06:28 Toxic Vacuolation Not Reportable 02/22/17 06:28 Dohle Bodies Not Reportable 02/22/17 06:28 Pelger-Huet Anomaly Not Reportable 02/22/17 06:28 Carol Rods Not Reportable 02/22/17 06:28 Platelet Estimate Consistent w auto 02/22/17 06:28 Clumped Platelets Not Reportable 02/22/17 06:28 Plt Clumps, EDTA Not Reportable 02/22/17 06:28 Large Platelets Not Reportable 02/22/17 06:28 Giant Platelets Not Reportable 02/22/17 06:28 Platelet Satelliting Not Reportable 02/22/17 06:28 Plt Morphology Comment Not Reportable 02/22/17 06:28 RBC Morphology Not Reportable 02/22/17 06:28 Dimorphic RBCs Not Reportable 02/22/17 06:28 Polychromasia Not Reportable 02/22/17 06:28 Hypochromasia 1+ 02/22/17 06:28 Poikilocytosis Not Reportable 02/22/17 06:28 Anisocytosis 1+ 02/22/17 06:28 Microcytosis Not Reportable 02/22/17 06:28 Macrocytosis Not Reportable 02/22/17 06:28 Spherocytes Not Reportable 02/22/17 06:28 Pappenheimer Bodies Not Reportable 02/22/17 06:28 Sickle Cells Not Reportable 02/22/17 06:28 Target Cells Not Reportable 02/22/17 06:28 Tear Drop Cells Not Reportable 02/22/17 06:28 Ovalocytes Not Reportable 02/22/17 06:28 Helmet Cells Not Reportable 02/22/17 06:[address] [place] Bodies Not Reportable 02/22/17 06:28 [place] Rings Not Reportable 02/22/17 06:28 Ruth Cells Not Reportable 02/22/17 06:28 Bite Cells Not Reportable 02/22/17 06:28 Crenated Cell Not Reportable 02/22/17 06:28 Elliptocytes Few 02/22/17 06:28 Acanthocytes (Spur) Not Reportable 02/22/17 06:28 Rouleaux Not Reportable 02/22/17 06:28 Hemoglobin C Crystals Not Reportable 02/22/17 06:28 Schistocytes Not Reportable 02/22/17 06:28 Malaria parasites Not Reportable 02/22/17 06:28 Star Bodies Not Reportable 02/22/17 06:28 Hem Pathologist Commnt No 02/22/17 06:28 Sodium 131 mmol/L (137-145) L 02/22/17 06:16 Potassium 4.7 mmol/L (3.6-5.0) D 02/23/17 06:57 Chloride 101.7 mmol/L (98-107) 02/22/17 06:16 Carbon Dioxide 16 mmol/L (22-30) L 02/22/17 06:16 Anion Gap 17 mmol/L 02/22/17 06:16 BUN 35 mg/dL (9-20) H 02/22/17 06:16 Creatinine 1.5 mg/dL (0.8-1.5) 02/22/17 06:16 Estimated GFR 47 ml/min 02/22/17 06:16 BUN/Creatinine Ratio 23.33 % 02/22/17 06:16 Glucose 69 mg/dL (75-100) L 02/22/17 06:16 Lactic Acid 1.50 mmol/L (0.7-2.0) 02/19/17 Unknown Calcium 7.9 mg/dL (8.4-10.2) L 02/22/17 06:16 Magnesium 1.70 mg/dL (1.7-2.3) 02/23/17 06:57 Total Bilirubin 1.10 mg/dL (0.1-1.2) 02/19/17 18:24 AST 29 units/L (5-40) 02/19/17 18:24 ALT 12 units/L (7-56) 02/19/17 18:24 Alkaline Phosphatase 146 units/L (35-129) H 02/19/17 18:24 Total Creatine Kinase 498 units/L (55-170) H 02/19/17 18:24 Total Protein 6.0 g/dL (6.3-8.2) L 02/19/17 18:24 Albumin 2.5 g/dL (3.9-5) L 02/19/17 18:24 Albumin/Globulin Ratio 0.7 % 02/19/17 18:24 Urine Color [place] (Yellow) 02/19/17 22:15 Urine Turbidity Clear (Clear) 02/19/17 22:15 Urine pH 5.0 (5.0-7.0) 02/19/17 22:15 Ur Specific [place] 1.015 (1.003-1.030) 02/19/17 22:15 Urine Protein 30 mg/dl mg/dL (Negative) 02/19/17 22:15 Urine Glucose (UA) Neg mg/dL (Negative) 02/19/17 22:15 Urine Ketones Neg mg/dL (Negative) 02/19/17 22:15 Urine Blood Sm (Negative) 02/19/17 22:15 Urine Nitrite Neg (Negative) 02/19/17 22:15 Urine Bilirubin Neg (Negative) 02/19/17 22:15 Urine Urobilinogen 4.0 mg/dL (<2.0) 02/19/17 22:15 Ur Leukocyte Esterase Neg (Negative) 02/19/17 22:15 Urine WBC (Auto) 3.0 /HPF (0.0-6.0) 02/19/17 22:15 Urine RBC (Auto) 1.0 /HPF (0.0-6.0) 02/19/17 22:15 Amorphous Crystals Few 02/19/17 22:15
[2017-02-24] MEDS: LOPRESSOR PO SCH ×2 (09:23→22:35)
[2017-02-24] MEDS: LOVENOX SUB-Q SCH (09:24)
[2017-02-24] MEDS: THERAGRAN Tab PO SCH (09:25)
[2017-02-24] MEDS: PROTONIX PO SCH (09:25)
[2017-02-24] MEDS: VITAMIN B-1 PO SCH (09:25)
[2017-02-24] MEDS: THERMAZENE 50 GRAM TP SCH ×3 (09:26→22:37)
[2017-02-24] MEDS: DAKIN'S HALF STRENGTH TP SCH ×3 (09:26→22:37)
--- NOTE | 2017-02-24 09:55 | Event Note ---
Date: 02/24/17 MRI of thoracic and lumbar spine reviewed. Patient with chronic T12 compression fracture. He would not receive significant benefit from kyphoplasty.
[2017-02-24] MEDS: NACL 0.9% 1000 ML 1,000 ML IV SCH (12:28)
[2017-02-24] MEDS: PROVENTIL IH PRN (12:52)
[2017-02-24] MEDS: DESYREL PO SCH (22:35)
[2017-02-25] MEDS: NACL 0.9% 1000 ML 1,000 ML IV SCH ×2 (00:31→17:01)
[2017-02-25] MEDS: ZOSYN/NS 2.25 GM/50ML 2.25 GM/50 ML BAG IV SCH ×2 (00:31→06:59)
[2017-02-25] MEDS: PERCOCET 5/325 PO PRN ×4 (00:32→20:53)
[2017-02-25 07:00] LABS: Basophils % (Auto) 0.6 % (0.0-1.8); Hematocrit 29.2 % (35.5-45.6); Hemoglobin 9.2 gm/dl (11.8-15.2); Mean Corpuscular HGB Conc 32 % (32-34); Mean Corpuscular Hemoglobin 29 pg (28-32); Mean Corpuscular Volume 92 fl (84-94); Platelet Count 251 K/mm3 (140-440); Red Blood Count 3.19 M/mm3 (3.65-5.03); White Blood Count 9.2 K/mm3 (4.5-11.0)
[2017-02-25 07:24] LABS: Anion Gap 17 mmol/L; BUN/Creatinine Ratio 19.16; Blood Urea Nitrogen 23 mg/dL (9-20); Calcium 7.7 mg/dL (8.4-10.2); Carbon Dioxide 18 mmol/L (22-30); Chloride 108.8 mmol/L (98-107); Glucose 77 mg/dL (75-100); Potassium 4.3 mmol/L (3.6-5.0); Sodium 139 mmol/L (137-145)
[2017-02-25] MEDS: THERAGRAN Tab PO SCH (09:54)
[2017-02-25] MEDS: LOVENOX SUB-Q SCH (09:54)
[2017-02-25] MEDS: VITAMIN B-1 PO SCH (09:54)
[2017-02-25] MEDS: PROTONIX PO SCH (09:54)
[2017-02-25] MEDS: LOPRESSOR PO SCH ×2 (09:54→21:01)
[2017-02-25] MEDS: THERMAZENE 50 GRAM TP SCH ×2 (09:55→21:03)
[2017-02-25] MEDS: DAKIN'S HALF STRENGTH TP SCH ×2 (09:55→21:03)
[2017-02-25] MEDS: PROVENTIL IH PRN (12:34)
[2017-02-25] MEDS: ZOSYN/NS 4.5GM/100ML 4.5 GM/100 ML VIAL IV SCH ×2 (13:36→21:01)
--- NOTE | 2017-02-25 14:40 | Progress Note ---
Assessment and Plan Assessment: 1) Sacral pressure ulcers - improved Plan: 1) Continue local wound care 2) Avoid pressure as much as possible (Pt states "I have to lie on my back.") He is aware that lying supine will only exacerbate his sacral ulcerations. Objective Vital Signs - 12hr 02/25/17 02/25/17 02/25/17 08:00 12:36 12:46 Temperature 98.0 F Pulse Rate [ 80 82 Anterior Bilateral Throughout] Pulse Rate [ 73 From Monitor] Respiratory 20 Rate Respiratory 18 18 Rate [Anterior Bilateral Throughout] Blood Pressure 125/71 [Right Arm] O2 Sat by Pulse 100 Oximetry - Integumentary other (Sacral wounds are much improved with a minimal amount of necrotic tissue remaining.) - Labs 02/25/17 05:33 02/25/17 05:33 Diabetes panel 02/25/17 Range/Units 05:33 Sodium 139 D (137-145) mmol/L Potassium 4.3 (3.6-5.0) mmol/L Chloride 108.8 H (98-107) mmol/L Carbon Dioxide 18 L (22-30) mmol/L BUN 23 H (9-20) mg/dL Creatinine 1.2 (0.8-1.5) mg/dL Glucose 77 (75-100) mg/dL Calcium 7.7 L (8.4-10.2) mg/dL Calcium panel 02/25/17 Range/Units 05:33 Calcium 7.7 L (8.4-10.2) mg/dL Phosphorus 2.60 (2.5-4.5) mg/dL Pituitary panel 02/25/17 Range/Units 05:33 Sodium 139 D (137-145) mmol/L Potassium 4.3 (3.6-5.0) mmol/L Chloride 108.8 H (98-107) mmol/L Carbon Dioxide 18 L (22-30) mmol/L BUN 23 H (9-20) mg/dL Creatinine 1.2 (0.8-1.5) mg/dL Glucose 77 (75-100) mg/dL Calcium 7.7 L (8.4-10.2) mg/dL Adrenal panel 02/25/17 Range/Units 05:33 Sodium 139 D (137-145) mmol/L Potassium 4.3 (3.6-5.0) mmol/L Chloride 108.8 H (98-107) mmol/L Carbon Dioxide 18 L (22-30) mmol/L BUN 23 H (9-20) mg/dL Creatinine 1.2 (0.8-1.5) mg/dL Glucose 77 (75-100) mg/dL Calcium 7.7 L (8.4-10.2) mg/dL
--- NOTE | 2017-02-25 15:50 | Consultation ---
History of Present Illness - HPI Consult date: 02/25/17 Past History Past Medical History: seizures, other (PTSD) Past Surgical History: hernia repair Social history: other ([place] vet) Family history: other (noncontributory) Medications and Allergies Allergies Allergy/AdvReac Type Severity Reaction Status Date / Time Tetanus Vaccines & Toxoid Allergy Unknown Verified 05/14/14 15:43 Home Medications Medication Instructions Recorded Confirmed Last Taken Type Multivitamin [Multi-Vitamin Daily] 1 each PO DAILY #30 tablet 06/04/14 12/28/15 Unknown Rx Omeprazole Magnesium [PriLOSEC Otc] 20 mg PO QDAY #30 tablet. 06/04/14 Unknown Rx ALBUTEROL Inhaler [ProAir HFA 2 puff IH QID PRN #1 inhalation 12/29/15 Unknown Rx Inhaler] Metoprolol [Lopressor TAB] 100 mg PO BID #30 tablet 12/29/15 Unknown Rx Pantoprazole [Protonix INJ] 40 mg PO BID #60 tab 12/29/15 Unknown Rx Trazodone HCl [Oleptro ER] 150 mg PO QHS #30 tab.er.24h 12/29/15 Unknown Rx Folic Acid [Folvite] 1 mg PO QDAY #30 tablet 07/08/16 Unknown Rx Lisinopril [Zestril TAB] 40 mg PO QDAY #30 tablet 07/08/16 Unknown Rx Thiamine [Vitamin B-1] 100 mg PO QDAY #30 tablet 07/08/16 Unknown Rx hydrALAZINE [Apresoline TAB] 50 mg PO Q8HR #90 tablet 07/08/16 Unknown Rx Active Meds: Active Medications Acetaminophen (Tylenol) 650 mg PO Q4H PRN PRN Reason: Pain MILD(1-3)/Fever >100.5/BUSTOS Albuterol (Proventil) 2.5 mg IH Q4HRT PRN PRN Reason: Shortness Of Breath Last Admin: 02/25/17 12:34 Dose: 2.5 mg Bisacodyl (Dulcolax) 10 mg MS QDAY PRN PRN Reason: Constipation unrelieved by MOM Enoxaparin Sodium (Lovenox) 40 mg SUB-Q QDAY@1000 MINDY Last Admin: 02/25/17 09:54 Dose: 40 mg Sodium Chloride (Nacl 0.9% 1000 Ml) 1,000 mls @ 75 mls/hr IV DIRECT [facility] Last Admin: 02/25/17 00:31 Dose: 125 mls/hr Piperacillin Sod/Tazobactam Sod (Zosyn/Ns 4.5gm/100ml) 4.5 gm in 100 mls @ 200 mls/hr IV Q8HR [facility] Last Admin: 02/25/17 13:36 Dose: 200 mls/hr Lorazepam (Ativan) 2 mg IV Q1HR PRN PRN Reason: CIWA-Ar 8-15 Last Admin: 02/22/17 15:57 Dose: 2 mg Lorazepam (Ativan) 4 mg IV Q1HR PRN PRN Reason: CIWA-Ar 16-25 Magnesium Hydroxide (Milk Of Magnesia) 30 ml PO Q4H PRN PRN Reason: Constipation Metoprolol Tartrate (Lopressor) 100 mg PO BID [facility] Last Admin: 02/25/17 09:54 Dose: 100 mg Multivitamins (Theragran Tab) 1 each PO DAILY [facility] Last Admin: 02/25/17 09:54 Dose: 1 each Ondansetron HCl (Zofran) 4 mg IV Q8H PRN PRN Reason: N/V unrelieved by Reglan Oxycodone/Acetaminophen (Percocet 5/325) 1 tab PO Q6H PRN PRN Reason: Pain, Moderate (4-6) Last Admin: 02/25/17 06:59 Dose: 1 tab Pantoprazole Sodium (Protonix) 20 mg PO QDAY [facility] Last Admin: 02/25/17 09:54 Dose: 20 mg Silver Sulfadiazine (Thermazene 50 Gram) 1 applic TP BID [facility] Last Admin: 02/25/17 09:55 Dose: 1 applic Sodium Hypochlorite (Dakin's Half Strength) 1 applic TP BID [facility] Last Admin: 02/25/17 09:55 Dose: 1 1000units Thiamine HCl (Vitamin B-1) 100 mg PO QDAY [facility] Last Admin: 02/25/17 09:54 Dose: 100 mg Trazodone HCl (Desyrel) 150 mg PO QHS [facility] Last Admin: 02/24/17 22:35 Dose: 150 mg Assessment and Plan 66-year-old man with history of hypertension, PTSD, seizure was brought to the emergency room for evaluation. Patient stated that he had difficulty ambulating since he had a fall 4 days ago. Patient and studies seen Alert orientated male , in NAD Mild tenderness on thoracic spine palpation, Soft abdomen Motor sensory function of lower extremities in normal, abrasions on knees with bandages MRI old compresion fracture T12, without cord compression Rec. Medical care does not require kyphoplasty
[2017-02-25] MEDS: DESYREL PO SCH (21:00)
[2017-02-25] MEDS: ATIVAN IV PRN (23:56)
[2017-02-26] MEDS: NACL 0.9% 1000 ML 1,000 ML IV SCH (04:40)
[2017-02-26] MEDS: ZOSYN/NS 4.5GM/100ML 4.5 GM/100 ML VIAL IV SCH (05:52)
--- NOTE | 2017-02-26 08:10 | Progress Note ---
Assessment and Plan Assessment and plan: --Metabolic encephalopathy Multifactorial secondary to alcohol use possible early dementia And malnutrition, sepsis ,Closely monitor --Multiple decubitus ulcers/abrations and bruises Wound care, status post surgical debridement by Dr. Henson, empiric antibiotics cultures negative to date --Compression fracture T12 MRI shows chronic fx of T12 IR feels not a candidate for kyphoplasty, consult orthopedics Supportive care, physical therapy occupational therapy --Chronic Alcohol abuse/cause withdrawal symptoms Continue CIWA protocol --Hyponatremia; Corrected, continue gentle hydration --Hypertension; Well-controlled continue current medications --DVT prophylaxis with Lovenox --DC planning; possible placement to SNF Full CODE STATUS Consults and recommendations noted and appreciated Patient's condition treatment plan discussed in detail with the patient his nurse as well as the case management History Interval history: continues to have back pain, /10, dull, mid back, non radiating, no other complaints Hospitalist Physical - Physical exam Narrative exam: General appearance: Present: no acute distress, disheveled - EENT Eyes: Present: PERRL, EOM intact - Neck Neck: Present: supple, normal ROM - Respiratory Respiratory effort: normal Respiratory: negative: rales, rhonchi, wheezing - Cardiovascular Rhythm: regular Heart Sounds: Present: S1 & S2 - Extremities Extremities: no ischemia, pulses intact, pulses symmetrical, abnormal (multiple chronic ablations, decubitus ulcers) Peripheral Pulses: within normal limits - Abdominal General gastrointestinal: soft, non-tender, non-distended, normal bowel sounds - Integumentary Integumentary: Stage 3 decub to sacrum, bilateral buttocks multiple wounds which have now scabbed over on bilateral UE, Left knee, R thigh - Psychiatric Psychiatric: appropriate mood/affect, cooperative - Neurologic Neurologic: CNII-XII intact, moves all extremities - Constitutional Vitals: - Constitutional Vitals: Temp Pulse Resp BP Pulse Ox 98.3 F 76 28 H 165/93 100 02/26/17 07:24 02/26/17 07:24 02/26/17 07:24 02/26/17 07:24 02/26/17 07:24 General appearance: Present: no acute distress, disheveled Results - Labs CBC & Chem 7: 02/25/17 05:33 02/25/17 05:33 Labs: Laboratory Last Values WBC 9.2 K/mm3 (4.5-11.0) 02/25/17 05:33 RBC 3.19 M/mm3 (3.65-5.03) L 02/25/17 05:33 Hgb 9.2 gm/dl (11.8-15.2) L 02/25/17 05:33 Hct 29.2 % (35.5-45.6) L 02/25/17 05:33 MCV 92 fl (84-94) 02/25/17 05:33 MCH 29 pg (28-32) 02/25/17 05:33 MCHC 32 % (32-34) 02/25/17 05:33 RDW 19.0 % (13.2-15.2) H 02/25/17 05:33 Plt Count 251 K/mm3 (140-440) 02/25/17 05:33 Lymph % (Auto) 6.3 % (13.4-35.0) L 02/25/17 05:33 Rains % (Auto) 7.6 % (0.0-7.3) H 02/25/17 05:33 Eos % (Auto) 1.0 % (0.0-4.3) 02/25/17 05:33 Baso % (Auto) 0.6 % (0.0-1.8) 02/25/17 05:33 Lymph # 0.6 K/mm3 (1.2-5.4) L 02/25/17 05:33 Rains # 0.7 K/mm3 (0.0-0.8) 02/25/17 05:33 Eos # 0.1 K/mm3 (0.0-0.4) 02/25/17 05:33 Baso # 0.1 K/mm3 (0.0-0.1) 02/25/17 05:33 Add Manual Diff Complete 02/22/17 06:28 Total Counted 100 02/22/17 06:28 Seg Neutrophils % 84.5 % (40.0-70.0) H 02/25/17 05:33 Seg Neuts % (Manual) 81.0 % (40.0-70.0) H 02/22/17 06:28 Band Neutrophils % 7.0 % 02/22/17 06:28 Lymphocytes % (Manual) 8.0 % (13.4-35.0) L 02/22/17 06:28 Reactive Lymphs % (Man) 0 % 02/22/17 06:28 Monocytes % (Manual) 4.0 % (0.0-7.3) 02/22/17 06:28 Eosinophils % (Manual) 0 % (0.0-4.3) 02/22/17 06:28 Basophils % (Manual) 0 % (0.0-1.8) 02/22/17 06:28 Metamyelocytes % 0 % 02/22/17 06:28 Myelocytes % 0 % 02/22/17 06:28 Promyelocytes % 0 % 02/22/17 06:28 Blast Cells % 0 % 02/22/17 06:28 Nucleated RBC % Not Reportable 02/22/17 06:28 Seg Neutrophils # 7.8 K/mm3 (1.8-7.7) H 02/25/17 05:33 Seg Neutrophils # Man 10.4 K/mm3 (1.8-7.7) H 02/22/17 06:28 Band Neutrophils # 0.9 K/mm3 02/22/17 06:28 Lymphocytes # (Manual) 1.0 K/mm3 (1.2-5.4) L 02/22/17 06:28 Abs React Lymphs (Man) 0.0 K/mm3 02/22/17 06:28 Monocytes # (Manual) 0.5 K/mm3 (0.0-0.8) 02/22/17 06:28 Eosinophils # (Manual) 0.0 K/mm3 (0.0-0.4) 02/22/17 06:28 Basophils # (Manual) 0.0 K/mm3 (0.0-0.1) 02/22/17 06:28 Metamyelocytes # 0.0 K/mm3 02/22/17 06:28 Myelocytes # 0.0 K/mm3 02/22/17 06:28 Promyelocytes # 0.0 K/mm3 02/22/17 06:28 Blast Cells # 0.0 K/mm3 02/22/17 06:28 WBC Morphology Not Reportable 02/22/17 06:28 Hypersegmented Neuts Not Reportable 02/22/17 06:28 Hyposegmented Neuts Not Reportable 02/22/17 06:28 Hypogranular Neuts Not Reportable 02/22/17 06:28 Smudge Cells Not Reportable 02/22/17 06:28 Toxic Granulation Not Reportable 02/22/17 06:28 Toxic Vacuolation Not Reportable 02/22/17 06:28 Dohle Bodies Not Reportable 02/22/17 06:28 Pelger-Huet Anomaly Not Reportable 02/22/17 06:28 Carol Rods Not Reportable 02/22/17 06:28 Platelet Estimate Consistent w auto 02/22/17 06:28 Clumped Platelets Not Reportable 02/22/17 06:28 Plt Clumps, EDTA Not Reportable 02/22/17 06:28 Large Platelets Not Reportable 02/22/17 06:28 Giant Platelets Not Reportable 02/22/17 06:28 Platelet Satelliting Not Reportable 02/22/17 06:28 Plt Morphology Comment Not Reportable 02/22/17 06:28 RBC Morphology Not Reportable 02/22/17 06:28 Dimorphic RBCs Not Reportable 02/22/17 06:28 Polychromasia Not Reportable 02/22/17 06:28 Hypochromasia 1+ 02/22/17 06:28 Poikilocytosis Not Reportable 02/22/17 06:28 Anisocytosis 1+ 02/22/17 06:28 Microcytosis Not Reportable 02/22/17 06:28 Macrocytosis Not Reportable 02/22/17 06:28 Spherocytes Not Reportable 02/22/17 06:28 Pappenheimer Bodies Not Reportable 02/22/17 06:28 Sickle Cells Not Reportable 02/22/17 06:28 Target Cells Not Reportable 02/22/17 06:28 Tear Drop Cells Not Reportable 02/22/17 06:28 Ovalocytes Not Reportable 02/22/17 06:28 Helmet Cells Not Reportable 02/22/17 06:28 [place] Bodies Not Reportable 02/22/17 06:28 [place] Rings Not Reportable 02/22/17 06:28 [place] Cells Not Reportable 02/22/17 06:28 Bite Cells Not Reportable 02/22/17 06:28 Crenated Cell Not Reportable 02/22/17 06:28 Elliptocytes Few 02/22/17 06:28 Acanthocytes (Spur) Not Reportable 02/22/17 06:28 Rouleaux Not Reportable 02/22/17 06:28 Hemoglobin C Crystals Not Reportable 02/22/17 06:28 Schistocytes Not Reportable 02/22/17 06:28 Malaria parasites Not Reportable 02/22/17 06:28 Star Bodies Not Reportable 02/22/17 06:28 Hem Pathologist Commnt No 02/22/17 06:28 Sodium 139 mmol/L (137-145) D 02/25/17 05:33 Potassium 4.3 mmol/L (3.6-5.0) 02/25/17 05:33 Chloride 108.8 mmol/L (98-107) H 02/25/17 05:33 Carbon Dioxide 18 mmol/L (22-30) L 02/25/17 05:33 Anion Gap 17 mmol/L 02/25/17 05:33 BUN 23 mg/dL (9-20) H 02/25/17 05:33 Creatinine 1.2 mg/dL (0.8-1.5) 02/25/17 05:33 Estimated GFR > 60 ml/min 02/25/17 05:33 BUN/Creatinine Ratio 19.16 % 02/25/17 05:33 Glucose 77 mg/dL (75-100) 02/25/17 05:33 Lactic Acid 1.50 mmol/L (0.7-2.0) 02/19/17 Unknown Calcium 7.7 mg/dL (8.4-10.2) L 02/25/17 05:33 Phosphorus 2.60 mg/dL (2.5-4.5) 02/25/17 05:33 Magnesium 1.40 mg/dL (1.7-2.3) L 02/25/17 05:33 Total Bilirubin 1.10 mg/dL (0.1-1.2) 02/19/17 18:24 AST 29 units/L (5-40) 02/19/17 18:24 ALT 12 units/L (7-56) 02/19/17 18:24 Alkaline Phosphatase 146 units/L (35-129) H 02/19/17 18:24 Total Creatine Kinase 498 units/L (55-170) H 02/19/17 18:24 Total Protein 6.0 g/dL (6.3-8.2) L 02/19/17 18:24 Albumin 2.5 g/dL (3.9-5) L 02/19/17 18:24 Albumin/Globulin Ratio 0.7 % 02/19/17 18:24 Urine Color Carmen (Yellow) 02/19/17 22:15 Urine Turbidity Clear (Clear) 02/19/17 22:15 Urine pH 5.0 (5.0-7.0) 02/19/17 22:15 Ur Specific [place] 1.015 (1.003-1.030) 02/19/17 22:15 Urine Protein 30 mg/dl mg/dL (Negative) 02/19/17 22:15 Urine Glucose (UA) Neg mg/dL (Negative) 02/19/17 22:15 Urine Ketones Neg mg/dL (Negative) 02/19/17 22:15 Urine Blood Sm (Negative) 02/19/17 22:15 Urine Nitrite Neg (Negative) 02/19/17 22:15 Urine Bilirubin Neg (Negative) 02/19/17 22:15 Urine Urobilinogen 4.0 mg/dL (<2.0) 02/19/17 22:15 Ur Leukocyte Esterase Neg (Negative) 02/19/17 22:15 Urine WBC (Auto) 3.0 /HPF (0.0-6.0) 02/19/17 22:15 Urine RBC (Auto) 1.0 /HPF (0.0-6.0) 02/19/17 22:15 Amorphous Crystals Few 02/19/17 22:15
--- NOTE | 2017-02-26 08:11 | Discharge Summary ---
Providers - Providers Date of Admission: 02/20/17 01:44 Attending physician: NYDIA CHEEK MD 02/20/17 05:53 Consult to Interventional Radiology [CONS] Routine Consulting Provider: MUNIRA MCLEAN Reason For Exam: compression fx Place consult to:: DR. COTTRELL Notified:: DR. COTTRELL Phone number called:: IN HOUSE Was contact made?: Yes If yes, spoke with:: DR. COTTRELL Time called:: 10:16 Comment:: CATHLEEN NOTIFIED 02/20/17 06:02 Consult to Wound/ET Nurse [CONS] Routine Reason For Exam: wound eval 02/20/17 14:29 Consult to Physician [CONS] Routine Consulting Provider: DALILA HENSON Reason For Exam: Sac decubitus wound debrediment Place consult to:: DALILA MORENO Notified:: OFFICE Phone number called:: [phone] Was contact made?: Yes If yes, spoke with:: MERLINE Time called:: 14:41 Comment:: TO SEE TODAY PER ETN 02/24/17 17:25 Consult to Physician [CONS] Routine Consulting Provider: PRIYA YOUNG Reason For Exam: chronic T12 fracture/pain Place consult to:: DR. YOUNG Notified:: OFFICE Phone number called:: [phone] Was contact made?: Yes If yes, spoke with:: MORENA Time called:: 10:04 Comment:: CHANTEL NOTIFIED 02/24/17 17:38 Physical Therapy Evaluation and Treat [CONS] Routine Comment: Reason For Exam: debilitate/back pain/unsteady gait Primary care physician: ULTRASOUND COORDINATOR Hospitalization Condition: Stable Hospital course: 66-year-old man with history of hypertension, PTSD, seizure was brought to the emergency room for evaluation. Patient stated that he had difficulty ambulating since he had a fall 4 days ago. He was found by neighbors covered in feces and urine. He was found to have an old T12 compression fracture of his spine. He was evaluated by interventional radiology and orthopedic surgery , the recommended pain management and physical therapy given the fracture was old. He received wound care for multiple decubitus ulcers abrasions and bruises , she also received pain medications and physical therapy. He was put on CIWA protocol for known history of alcohol abuse. And he was treated with IV fluids , and started on blood pressure medications for treatment of hypertension. --Metabolic encephalopathy Multifactorial secondary to alcohol use, alcohol withdrawal possible early dementia And malnutrition, sepsis ,Closely monitor, continue supportive care -Sepsis due to infected sacral decub/cellulitis received IVF, sepsis protocol and IV abx --Multiple decubitus ulcers Stage 3/abrations and bruises Wound care, status post surgical debridement by Dr. Henson, he received empiric antibiotics cultures negative to date, continue wound care at [place] upon dc --Compression fracture T12 Was seen by both interventional radiology and orthopedic surgery, compression fracture is old, patient is not a candidate for kyphoplasty, continue pain management and supportive care, Supportive care, physical therapy occupational therapy --Chronic Alcohol abuse/withdrawal symptoms Received CIWA protocol --Hyponatremia; Corrected with normal saline administration --Hypertension; Medications are optimized. --Severe malnutrition received nutritional support and encouragement --Mu --DVT prophylaxis with Lovenox Disposition: DC/TX SNF [facility] Time spent for discharge: 35 minutes Core Measure Documentation - Palliative Care Palliative Care/ Comfort Measures: Not Applicable - Core Measures Any of the following diagnoses?: none Exam - Physical Exam Narrative exam: General appearance: Present: no acute distress, disheveled - EENT Eyes: Present: PERRL, EOM intact - Neck Neck: Present: supple, normal ROM - Respiratory Respiratory effort: normal Respiratory: negative: rales, rhonchi, wheezing - Cardiovascular Rhythm: regular Heart Sounds: Present: S1 & S2 - Extremities Extremities: no ischemia, pulses intact, pulses symmetrical, abnormal (multiple chronic ablations, decubitus ulcers) Peripheral Pulses: within normal limits - Abdominal General gastrointestinal: soft, non-tender, non-distended, normal bowel sounds - Integumentary Integumentary: Stage 3 decub to sacrum, bilateral buttocks multiple wounds which have now scabbed over on bilateral UE, Left knee, R thigh - Psychiatric Psychiatric: appropriate mood/affect, cooperative - Neurologic Neurologic: CNII-XII intact, moves all extremities - Constitutional Vitals: Temp Pulse Resp BP Pulse Ox 98.3 F 76 28 H 165/93 100 02/26/17 07:24 02/26/17 07:24 02/26/17 07:24 02/26/17 07:24 02/26/17 07:24 Plan Follow up with: PRIMARY CARE, [Primary Care Provider] - 3-5 Days Prescriptions: oxyCODONE /ACETAMINOPHEN [Percocet 5/325 mg] 1 tab PO Q6H PRN #7 tablet PRN Reason: Pain, Moderate (4-6)
[2017-02-26] MEDS: THERAGRAN Tab PO SCH (10:10)
[2017-02-26] MEDS: VITAMIN B-1 PO SCH (10:11)
[2017-02-26] MEDS: LOPRESSOR PO SCH (10:11)
[2017-02-26] MEDS: PROTONIX PO SCH (10:11)
[2017-02-26] MEDS: THERMAZENE 50 GRAM TP SCH (10:12)
[2017-02-26] MEDS: DAKIN'S HALF STRENGTH TP SCH (10:12)
[2017-02-26] MEDS: LOVENOX SUB-Q SCH (10:13)
[2017-02-26] MEDS: PERCOCET 5/325 PO PRN (12:52)
[2017-02-26 14:14] VITALS: BP 161/93
--- NOTE | 2017-03-01 03:17 | Consultation ---
REASON FOR CONSULTATION: Back pain. BRIEF HISTORY: The patient is a 66-year-old male who is being admitted to the hospital for evaluation of low back pain. The patient presented to the ER, was admitted secondary to having the complaint of low back pain. At the time of admission, the patient was found to have multiple abrasions on his knees and hands secondary to the patient being crawling around in the floor. This is fading. The patient was unable to sit up and stand secondary to back pain. The patient was found to have a remote compression fracture of the thoracolumbar spine. PHYSICAL EXAMINATION: The patient today at bedside demonstrates an alert and oriented male who is in no acute distress. Physical exam today demonstrated the patient is basically neurologically intact. Basically is able to sit in bed without any problems, there is minimal discomfort and pain on palpation of the thoracolumbar spine. Neurologically intact with motor strength of both thighs, calves, ___. The abdomen is benign. Evaluation of the ___ the patient demonstrates he had multiple compression fractures from degenerative lumbar spine ___. IMPRESSION: Low back pain, thoracic pain and discomfort, remote compression fracture. At this point, I believe the patient is doing well. I believe that the patient requires pain management and control. The patient is explained that ___ discharged from the hospital if needed. JOB# [id number] MAME/GET
== END 2017-02-26 13:35 | DRG 871 ==
LOC: ED 17:04 → 3A 02-20 01:44
PROVIDERS: ADMIT Internal Medicine; ATTEND Internal Medicine
DX: A41.9 Sepsis, unspecified organism (principal); G93.41 Metabolic encephalopathy; E43 Unspecified severe protein-calorie malnutrition; L89.153 Pressure ulcer of sacral region, stage 3; E87.1 Hypo-osmolality and hyponatremia; S22.080A Wedge compression fracture of T11-T12 vertebra, initial encounter for closed fracture; I10 Essential (primary) hypertension; F43.10 Post-traumatic stress disorder, unspecified; J44.9 Chronic obstructive pulmonary disease, unspecified; F17.200 Nicotine dependence, unspecified, uncomplicated; F10.10 Alcohol abuse, uncomplicated; Z68.21 Body mass index [BMI] 21.0-21.9, adult; Z82.49 Family history of ischemic heart disease and other diseases of the circulatory system
CPT/HCPCS: 36415; 51701; 71010; 72100; 72131; 72146; 80048; 80053; 81001; 82140; 82550; 82962; 83735; 84100; 84132; 85007; 85025; 87040; 87086; 93005; 93010; 94640; 94760; 96365; 96368; 96375; 99406; A6260; G8978-GP; G8979-GP; J1650; J2060; J2270; J2543; J3370; J3475; J7030

== ENCOUNTER 2017-03-14 12:18 | Emergency (ER) | payer MEDICARE ==
[~2017-03-14 12:18] MED LIST: ADRENALIN ONE
[2017-03-14 12:44] VITALS: BP 0/0
--- NOTE | 2017-03-14 13:04 | Emergency Department Report ---
ED CPR HPI - General Chief Complaint: Cardiac Arrest/CPR Stated Complaint: CARDIAC ARREST Time Seen by Provider: 03/14/17 13:00 Source: EMS, RN notes reviewed Mode of arrival: Stretcher Limitations: Altered Mental Status - History of Present Illness MD Complaint: found unresponsive, stopped breathing Bystander CPR Performed: No AED Applied by Bystander/Loss Control Engineer: No Shock Advised: No Downtime Before ACLS Arrival (mins): 35 Initial Findings in the Field: unresponsive, no pulse Associated Symptoms: denies: chest pain, abdominal pain, back pain, shortness of breath, headache, dizziness/weakness, sweating, palpitations Treatments Prior to Arrival: intubation, BMV, epinephrine mgs #, sodium bicarbonate - Related Data Previous Rx's Medication Instructions Recorded Last Taken Type Multivitamin [Multi-Vitamin Daily] 1 each PO DAILY #30 tablet 06/04/14 Unknown Rx Omeprazole Magnesium [PriLOSEC Otc] 20 mg PO QDAY #30 tablet. 06/04/14 Unknown Rx ALBUTEROL Inhaler [ProAir HFA 2 puff IH QID PRN #1 inhalation 12/29/15 Unknown Rx Inhaler] Metoprolol [Lopressor TAB] 100 mg PO BID #30 tablet 12/29/15 Unknown Rx Trazodone HCl [Oleptro ER] 150 mg PO QHS #30 tab.er.24h 12/29/15 Unknown Rx Folic Acid [Folvite] 1 mg PO QDAY #30 tablet 07/08/16 Unknown Rx Thiamine [Vitamin B-1] 100 mg PO QDAY #30 tablet 07/08/16 Unknown Rx ALBUTEROL NEB's [Proventil 0.083% 2.5 mg IH Q4HRT PRN #1 nebu 02/26/17 Unknown Rx NEBS] SILVER sulfADIAZINE 50 GRAM 1 applic TP BID tube 02/26/17 Unknown Rx [Thermazene 50 Gram] Sodium Hypochlorite [Dakin's Half 1 applic TP BID bottle 02/26/17 Unknown Rx Strength] oxyCODONE /ACETAMINOPHEN [Percocet 1 tab PO Q6H PRN #7 tablet 02/26/17 Unknown Rx 5/325 mg] Allergies Allergy/AdvReac Type Severity Reaction Status Date / Time Tetanus Vaccines & Toxoid Allergy Unknown Verified 05/14/14 15:43 ED Review of Systems ROS: Stated complaint: CARDIAC ARREST Other details as noted in HPI Comment: Unobtainable due to pts medical conditions ED Past Medical Hx - Past Medical History Hx Hypertension: Yes Hx Seizures: Yes Hx Psychiatric Treatment: Yes (PTSD) Hx COPD: Yes Additional medical history: ETOH abuse - Surgical History Additional Surgical History: hernia repair x2 - Social History Smoking Status: Smoker, Current Status Unknown Substance Use Type: Alcohol - Medications Home Medications: Home Medications Medication Instructions Recorded Confirmed Last Taken Type Multivitamin [Multi-Vitamin Daily] 1 each PO DAILY #30 tablet 06/04/14 12/28/15 Unknown Rx Omeprazole Magnesium [PriLOSEC Otc] 20 mg PO QDAY #30 tablet.dr 06/04/14 Unknown Rx ALBUTEROL Inhaler [ProAir HFA 2 puff IH QID PRN #1 inhalation 12/29/15 Unknown Rx Inhaler] Metoprolol [Lopressor TAB] 100 mg PO BID #30 tablet 12/29/15 Unknown Rx Trazodone HCl [Oleptro ER] 150 mg PO QHS #30 tab.er.24h 12/29/15 Unknown Rx Folic Acid [Folvite] 1 mg PO QDAY #30 tablet 07/08/16 Unknown Rx Thiamine [Vitamin B-1] 100 mg PO QDAY #30 tablet 07/08/16 Unknown Rx ALBUTEROL NEB's [Proventil 0.083% 2.5 mg IH Q4HRT PRN #1 nebu 02/26/17 Unknown Rx NEBS] SILVER sulfADIAZINE 50 GRAM 1 applic TP BID tube 02/26/17 Unknown Rx [Thermazene 50 Gram] Sodium Hypochlorite [Dakin's Half 1 applic TP BID bottle 02/26/17 Unknown Rx Strength] oxyCODONE /ACETAMINOPHEN [Percocet 1 tab PO Q6H PRN #7 tablet 02/26/17 Unknown Rx 5/325 mg] ED Physical Exam - General Limitations: Altered Mental Status General appearance: lethargic, obtunded - Head Head exam: Present: atraumatic, normocephalic - Eye Eye exam: Present: normal appearance - Cardiovascular Cardiovascular Exam: Absent: systolic murmur, diastolic murmur, rubs, gallop - GI/Abdominal GI/Abdominal exam: Present: soft - Rectal Rectal exam: Present: deferred - Skin Skin exam: Absent: rash ED Course Vital Signs 03/14/17 12:38 Pulse Rate 0 L Respiratory 0 L Rate Blood Pressure 0/0 O2 Sat by Pulse 0 L Oximetry Critical care attestation.: If time is entered above; I have spent that time in minutes in the direct care of this critically ill patient, excluding procedure time. ED Disposition Clinical Impression: Cardiac arrest Disposition: DC-20 Is pt being admited?: No Does the pt Need Aspirin: No Condition: Critical Referrals: PRIMARY CARE, [Primary Care Provider] - 3-5 Days Time of Disposition: 13:03
== END 2017-03-14 16:05 ==
LOC: ED 12:18
DX: I46.9 Cardiac arrest, cause unspecified (principal); I10 Essential (primary) hypertension; F43.10 Post-traumatic stress disorder, unspecified; J44.9 Chronic obstructive pulmonary disease, unspecified; Z88.7 Allergy status to serum and vaccine
CPT/HCPCS: 99285; J0171